=== PATIENT | female | born 1990 | race Caucasian/White ===

== ENCOUNTER 2018-03-25 22:37 | Emergency (ER) | payer BC, OTHER ==
[~2018-03-25] VITALS: Ht 160 cm; Wt 86.2 kg
[2018-03-25 23:08] LABS: BASOPHILS % (AUTO) 0 % (0-10); EOSINOPHILS # (AUTO) 0.1 10^3/uL (0.0-0.3); EOSINOPHILS % (AUTO) 1 % (0-10); HEMATOCRIT 37 % (35-52); LYMPHOCYTES # (AUTO) 1.1 X 10^3 (1.0-4.0); LYMPHOCYTES % (AUTO) 9 % (12-44); MEAN CORPUSCULAR HEMOGLOBIN 31 PG (25-34); MEAN CORPUSCULAR HGB CONC 35 G/DL (32-36); MEAN CORPUSCULAR VOLUME 88 FL (80-99); MEAN PLATELET VOLUME 11.3 FL (7.4-10.4); MONOCYTES # (AUTO) 0.5 X 10^3 (0.0-1.0); MONOCYTES % (AUTO) 4 % (0-12); NEUTROPHILS # (AUTO) 10.4 X 10^3 (1.8-7.8); NEUTROPHILS % (AUTO) 86 % (42-75); PLATELET COUNT 249 10^3/uL (130-400); RED BLOOD COUNT 4.26 10^6/uL (4.35-5.85); RED CELL DISTRIBUTION WIDTH 13.3 % (10.0-14.5); WHITE BLOOD COUNT 12.1 10^3/uL (4.3-11.0)
[2018-03-25] MEDS ORDERED: LACTATED RINGERS 1,000 ML IV ONE (23:19)
[2018-03-25] MEDS ORDERED: PROMETHAZINE INJ 25 MG/ML (PHENERGAN) AMP IVP STA (23:19)
[2018-03-25 23:27] LABS: ALANINE AMINOTRANSFERASE 15 U/L (0-55); ALBUMIN 3.8 GM/DL (3.2-4.5); ALKALINE PHOSPHATASE 64 U/L (40-136); AMYLASE 38 U/L (25-125); BILIRUBIN,TOTAL 0.5 MG/DL (0.1-1.0); BUN/CREATININE RATIO 11; CALCIUM 9.3 MG/DL (8.5-10.1); CARBON DIOXIDE 19 MMOL/L (21-32); CHLORIDE 106 MMOL/L (98-107); CREATININE SERUM 0.64 MG/DL (0.60-1.30); GFR ESTIMATED > 60; GLUCOSE 110 MG/DL (70-105); LIPASE 23 U/L (8-78); POTASSIUM 3.8 MMOL/L (3.6-5.0); SODIUM 138 MMOL/L (135-145); TOTAL PROTEIN 6.9 GM/DL (6.4-8.2)
[2018-03-26] MEDS ORDERED: NS IV 1000 ML 1,000 ML IV ONE (00:47)
[2018-03-26 00:52] LABS: LYMPHOCYTES % (MANUAL) 6 %; MONOCYTES % (MANUAL) 4 %; NEUTROPHILS % (MANUAL) 90 %
[2018-03-26] MEDS ORDERED: ACETAMINOPHEN 500 MG TAB (TYLENOL) PO ONE (01:15)
[2018-03-26 01:16] LABS: BILIRUBIN,URINE NEGATIVE (NEGATIVE); CLARITY,URINE CLEAR; COLOR,URINE YELLOW; GLUCOSE, URINE (UA) NEGATIVE (NEGATIVE); KETONES,URINE 3+ (NEGATIVE); LEUKOCYTE ESTERASE ,URINE NEGATIVE (NEGATIVE); NITRITE,URINE NEGATIVE (NEGATIVE); PH,URINE 6.5 (5-9); PROTEIN,URINE NEGATIVE (NEGATIVE); UROBILINOGEN,URINE NORMAL (NORMAL)
[2018-03-26 01:26] LABS: BACTERIA,URINE FEW /HPF
[2018-03-26] MEDS ORDERED: RX-PHENERGAN 25 MG SUPP PPK#3 PR STA (02:07)
[2018-03-26] MEDS ORDERED: PROM25SU43 RC (02:11)
--- NOTE | 2018-03-26 02:11 | ED GI ---
General Chief Complaint: Abdominal/GI Problems Stated Complaint: VOMITING,17 WKS Nursing Triage Note: Pt has been vomiting since 1430 and not feeling well all day. Pt is 17 weeks . She has been taking zofran (has taken max amount of zofran) today. Last dose was 1900. Pt has generalized abdominal pain from vomiting. Sepsis Screen: Possible Sepsis Risk Source of Information: Patient History of Present Illness Date Seen by Provider: Mar 25, 2018 Time Seen by Provider: 23:05 Initial Comments PT ARRIVES VIA POV FROM HOME C/O NAUSEA AND VOMITING SINCE 1430 TODAY-STATES SHE CANNOT KEEP ANYTHING DOWN, INCLUDING WATER. STATES SHE HAS ZOFRAN AT HOME AND HAS TAKEN THE MAXIMUM DAILY DOSE OF 32 MG TODAY, WITHOUT RELIEF. HAS TAKEN 8 MG TABLETS 4 TIMES TODAY. STATES SHE HAS VOMITED OVER 10 TIMES NO DIARRHEA. HAS HAD A NORMAL BM TODAY HAS HAD MILD LOWER ABDOMINAL PAIN THAT COMES AND GOES, IS NOT PRESENT NOW. HAS HAD CHILLS BUT HAS NOT CHECKED TEMPERATURE C/O BURNING ON URINATION AND VOIDING LESS THAN NORMAL, BUT URINATES EVERY TIME SHE THROWS UP STATES SHE FELT FINE THIS AM AND ATE EGG AND CHEESE BISCUIT WITH HAS BROWNS FOR BREAKFAST AND 1/2 PICKLE FOR LUNCH, NOTHING TO EAT SINCE THEN. NO SICK CONTACTS OR SUSPICIOUS FOODS. PT STATES SHE IS 17 WEEKS PT IS AB 0. NO COMPLICATIONS WITH THIS . NO VAGINAL BLEEDING OR DISCHARGE. HAD ROUTINE VISIT WITH DR. RICHEY 03/14/18 HAD NORMAL ULTRASOUND 03/07/[address] S[employer]YMANSKI[employer]S [employer] CLIP ON SUNGLASSES KHALIDA AROUND 1800 FOR THIS PROBLEM, AND WAS ADVISED TO GO TO ER. Allergies and Home Medications Allergies Coded Allergies: Sulfa (Sulfonamide Antibiotics) (Verified Allergy, Unknown, 03/25/18) Home Medications Promethazine HCl 25 Mg Supp.rect, 25 MG RC Q4H Prescribed by: LUIS GAYLE on 03/26/18 0211 Patient Home Medication List Home Medication List Reviewed: Yes Review of Systems Review of Systems Constitutional: see HPI, chills, malaise, weakness EENTM: No Symptoms Reported Respiratory: No Symptoms Reported Cardiovascular: No Symptoms Reported Gastrointestinal: See HPI, Abdominal Pain; Denies Constipated, Denies Diarrhea ; Nausea, Poor Appetite, Poor Fluid Intake, Vomiting Genitourinary: See HPI, Burning, Incontinence Musculoskeletal: no symptoms reported Skin: no symptoms reported Psychiatric/Neurological: No Symptoms Reported Endocrine: No Symptoms Reported Hematologic/Lymphatic: No Symptoms Reported Past Ojtupms-Jrwiwg-Saferq Hx Patient Social History Alcohol Use: Past History (WHEN YOUNGER.) Recreational Drug Use: No Smoking Status: Former Smoker Type Used: Cigarettes 2nd Hand Smoke Exposure: No Recent Foreign Travel: No Contact w/Someone Who Travel: No Recent Infectious Disease Expo: No Recent Hopitalizations: No Physical Abuse: No Sexual Abuse: No Mistreated: No Fear: No Seasonal Allergies Seasonal Allergies: No Past Medical History Surgeries: Yes (WISDOM TEETH) Respiratory: No Cardiac: Yes Hypertension Neurological: No : Yes Hx : 1 Hx Para: 0 Hx Total # of Abortions (Sp): 0 Reproductive Disorders: No Genitourinary: No Gastrointestinal: No Musculoskeletal: No Endocrine: No HEENT: No Cancer: No Psychosocial: No Integumentary: No Blood Disorders: No Physical Exam Vital Signs Vital Signs - First Documented 03/25/18 22:42 Temp 100.5 Pulse 120 Resp 14 B/P (MAP) 143/87 (105) Pulse Ox 99 O2 Delivery Room Air Capillary Refill : Less Than 3 Seconds Height/Weight/BMI Height: 5'3.00" Weight: 190lbs. oz. 86.468288mc; BMI Method:Stated General Appearance: WD/WN, no apparent distress, other (FLAT AFFECT, DOES NOT MAKE EYE CONTACT. SOMEWHAT LETHARGIC. ) HEENT: PERRL/EOMI, normal ENT inspection Neck: normal inspection Respiratory: normal breath sounds, no respiratory distress, no accessory muscle use Cardiovascular: regular rate, rhythm, no murmur Gastrointestinal: normal bowel sounds, soft, no organomegaly; No distended, No guarding, No rebound; other (FUNDUS 2 FB'S BELOW UMBILICUS. FHR 155) Extremities: normal inspection, no pedal edema, normal capillary refill Back: normal inspection, no CVA tenderness Neurologic/Psychiatric: medical pathologist II-XII nml as tested, no motor/sensory deficits, alert, oriented x 3 Skin: normal color, warm/dry; No rash Focused Exam Lactate Level 03/25/18 22:53: Lactic Acid Level 1.01 Lactic Acid Level Laboratory Tests Test 03/25/18 22:53 Lactic Acid Level 1.01 MMOL/L (0.50-2.00) Progress/Results/Core Measures Results/Orders Lab Results Laboratory Tests Test 03/25/18 22:53 03/26/18 01:05 Range/Units White Blood Count 12.1 H 4.3-11.0 10^3/uL Red Blood Count 4.26 L 4.35-5.85 10^6/uL Hemoglobin 13.0 11.5-16.0 G/DL Hematocrit 37 35-52 % Mean Corpuscular Volume 88 80-99 FL Mean Corpuscular Hemoglobin 31 25-34 PG Mean Corpuscular Hemoglobin Concent 35 32-36 G/DL Red Cell Distribution Width 13.3 10.0-14.5 % Platelet Count 249 130-400 10^3/uL Mean Platelet Volume 11.3 H 7.4-10.4 FL Neutrophils (%) (Auto) 86 H 42-75 % Lymphocytes (%) (Auto) 9 L 12-44 % Monocytes (%) (Auto) 4 0-12 % Eosinophils (%) (Auto) 1 0-10 % Basophils (%) (Auto) 0 0-10 % Neutrophils # (Auto) 10.4 H 1.8-7.8 X 10^3 Lymphocytes # (Auto) 1.1 1.0-4.0 X 10^3 Monocytes # (Auto) 0.5 0.0-1.0 X 10^3 Eosinophils # (Auto) 0.1 0.0-0.3 10^3/uL Basophils # (Auto) 0.0 0.0-0.1 10^3/uL Neutrophils % (Manual) 90 % Lymphocytes % (Manual) 6 % Monocytes % (Manual) 4 % Sodium Level 138 135-145 MMOL/L Potassium Level 3.8 3.6-5.0 MMOL/L Chloride Level 106 98-107 MMOL/L Carbon Dioxide Level 19 L 21-32 MMOL/L Anion Gap 13 5-14 MMOL/L Blood Urea Nitrogen 7 7-18 MG/DL Creatinine 0.64 0.60-1.30 MG/DL Estimat Glomerular Filtration Rate > 60 BUN/Creatinine Ratio 11 Glucose Level 110 H 70-105 MG/DL Lactic Acid Level 1.01 0.50-2.00 MMOL/L Calcium Level 9.3 8.5-10.1 MG/DL Corrected Calcium 9.5 8.5-10.1 MG/DL Magnesium Level 1.6 L 1.8-2.4 MG/DL Total Bilirubin 0.5 0.1-1.0 MG/DL Aspartate Amino Transf (AST/SGOT) 15 5-34 U/L Alanine Aminotransferase (ALT/SGPT) 15 0-55 U/L Alkaline Phosphatase 64 40-136 U/L Total Protein 6.9 6.4-8.2 GM/DL Albumin 3.8 3.2-4.5 GM/DL Amylase Level 38 25-125 U/L Lipase 23 8-78 U/L Urine Color YELLOW Urine Clarity CLEAR Urine pH 6.5 5-9 Urine Specific Loving 1.010 L 1.016-1.022 Urine Protein NEGATIVE NEGATIVE Urine Glucose (UA) NEGATIVE NEGATIVE Urine Ketones 3+ H NEGATIVE Urine Nitrite NEGATIVE NEGATIVE Urine Bilirubin NEGATIVE NEGATIVE Urine Urobilinogen NORMAL NORMAL MG/DL Urine Leukocyte Esterase NEGATIVE NEGATIVE Urine RBC (Auto) NEGATIVE NEGATIVE Urine RBC NONE /HPF Urine WBC NONE /HPF Urine Squamous Epithelial Cells 2-5 /HPF Urine Renal Epithelial Cells NONE /HPF Urine Crystals NONE /LPF Urine Bacteria FEW H /HPF Urine Casts NONE /LPF Urine Mucus NEGATIVE /LPF Urine Culture Indicated NO Micro Results Microbiology 03/25/18 Influenza Types A,B Antigen (LUDIN) - Final, Complete My Orders Orders - LUIS GAYLE DO Saline Lock/Iv-Start (03/25/18 23:01) Monitor-Rhythm Ecg Trace Only (03/25/18 23:01) Amylase (03/25/18 23:01) Cbc With Automated Diff (03/25/18 23:01) Comprehensive Metabolic Panel (03/25/18 23:01) Lipase (03/25/18 23:01) Ua Culture If Indicated (03/25/18 23:01) Saline Lock/Iv-Start (03/25/18 23:01) Manual Differential (03/25/18 22:53) Lactic Acid Analyzer (03/25/18 23:19) Magnesium (03/25/18 23:19) Blood Culture (03/25/18 23:19) Influenza A And B Antigens (03/25/18 23:19) Saline Lock/Iv-Start (03/25/18 23:19) Heart Tones (03/25/18 23:19) Saline Lock/Iv-Start (03/25/18 23:19) Lactated Ringers (Lr 1000 Ml Iv Solution (03/25/18 23:19) Promethazine Injection (Phenergan Injec (03/25/18 23:19) Saline Lock/Iv-Start (03/26/18 00:47) Ns Iv 1000 Ml (Sodium Chloride 0.9%) (03/26/18 00:47) Acetaminophen Tablet (Tylenol Tablet) (03/26/18 01:15) Rx-Promethazine Hcl (Rx-Phenergan Supp) (03/26/18 02:07) Medications Given in ED Current Medications Medications Dose Ordered Sig/Bharti Route Start Time Stop Time Status Last Admin Dose Admin Acetaminophen 1,000 mg ONCE ONCE PO 03/26/18 01:15 03/26/18 01:16 DC 03/26/18 01:17 1,000 MG Lactated Ringer's 1,000 ml @ 0 mls/hr Q0M ONCE IV 03/25/18 23:19 03/25/18 23:22 DC 03/25/18 23:30 1,000 MLS/HR Sodium Chloride 1,000 ml @ 0 mls/hr Q0M ONCE IV 03/26/18 00:47 03/26/18 00:48 DC 03/26/18 01:00 1,000 MLS/HR Vital Signs/I&O 03/25/18 03/26/18 03/26/18 22:42 02:19 02:19 Temp 100.5 99.9 99.9 Pulse 120 95 95 Resp 14 12 B/P (MAP) 143/87 (105) 119/81 119/81 (94) Pulse Ox 99 97 97 O2 Delivery Room Air Room Air Room Air Blood Pressure Mean: 105 Progress Progress Note : Progress Note FHR 155 NO VOMITING DURING ER STAY. AND NO COMPLAINTS OF ABDOMINAL PAIN DURING ER STAY. NAUSEA RESOLVED WITH PHENERGAN PT TOLERATING WATER AND ICE CHIPS PRIOR TO DISMISSAL. Departure Impression Primary Impression: Gastroenteritis Additional Impressions: 17 weeks gestation of Mild dehydration Disposition: 01 HOME, SELF-CARE Condition: Improved Departure-Patient Inst. Referrals: MARIN RICHEY MD (PCP/Family) Primary Care Physician Patient Instructions: [id number], Nausea and Vomiting of (DC), Nausea and Vomiting, Adult (DC) Add. Discharge Instructions: CLEAR LIQUIDS--WATER, BROTH, JELLO, GATORADE--SIPS AT A TIME TOMORROW IF YOU ARE BETTER, ADD BRATS DIET TO CLEAR LIQUIDS--BANANAS, RICE, APPLESAUCE, TOAST, SALTINES TAKE YOUR HOME ZOFRAN NEEDED FOR NAUSEA FOLLOW UP WITH YOUR DR IN 1-2 DAYS IF NO BETTER, RETURN TO ER IF WORSE All discharge instructions reviewed with patient and/or family. Voiced understanding. Scripts Promethazine HCl (Phenergan) 25 Mg Supp.rect 25 MG RC Q4H for Nausea/Vomiting, #10 SUPP.RECT Prov: LUIS GAYLE DO 03/26/18 LUIS GAYLE DO Mar 26, 2018 02:11
[2018-03-26 02:19] VITALS: BP 119/81
== END 2018-03-26 02:19 | disposition home or self-care (01) ==
LOC: ER 22:40
DX: O99.612 Diseases of the digestive system complicating pregnancy, second trimester (principal); K52.9 Noninfective gastroenteritis and colitis, unspecified; O99.282 Endocrine, nutritional and metabolic diseases complicating pregnancy, second trimester; E86.0 Dehydration; O16.2 Unspecified maternal hypertension, second trimester; Z87.891 Personal history of nicotine dependence; Z88.2 Allergy status to sulfonamides; Z3A.17 17 weeks gestation of pregnancy
CPT/HCPCS: 36415; 80053; 81000; 82150; 83605; 83690; 83735; 85007; 85027; 87040; 87804

== ENCOUNTER 2018-07-07 13:35 | Outpatient (CLI) | payer BC ==
[2018-07-07] VITALS (10 sets, daily range): BP systolic 132–174; BP diastolic 87–99
[~2018-07-07] VITALS: Ht 160 cm; Wt 101.6 kg
--- NOTE | 2018-07-07 13:25 | NUR ---
ANDREINA BUCIO presented to unit via from ED, accompanied by self, with c/o FACIAL SWELLING, HIGH BP. ANDREINA BUCIO weighed, gowned, voided, and to bed. EFHM and TOCO applied, VS taken. ANDREINA BUCIO oriented to bed controls, call light, TV, heat, and A/C controls.
[~2018-07-07 13:35] MED LIST: PROM25SU43 RC
--- NOTE | 2018-07-07 13:43 | NUR ---
dr elam notified of patient status and SBAR given. new orders received.
[2018-07-07 14:02] LABS: BILIRUBIN,URINE NEGATIVE (NEGATIVE); CLARITY,URINE VERY CLOUDY; COLOR,URINE YELLOW; GLUCOSE, URINE (UA) NEGATIVE (NEGATIVE); KETONES,URINE NEGATIVE (NEGATIVE); LEUKOCYTE ESTERASE ,URINE 3+ (NEGATIVE); NITRITE,URINE NEGATIVE (NEGATIVE); PH,URINE 6.5 (5-9); PROTEIN,URINE NEGATIVE (NEGATIVE); UROBILINOGEN,URINE NORMAL (NORMAL)
[2018-07-07 14:12] LABS: BACTERIA,URINE FEW /HPF; SQUAMOUS EPITHELIAL CELL,UR >50 /HPF
--- NOTE | 2018-07-07 14:12 | NUR ---
assisted patient to left tilt with pillow, denies need at this time. fresh ice water placed at bedside. continuing to monitor.
[2018-07-07 14:30] LABS: BASOPHILS % (AUTO) 0 % (0-10); EOSINOPHILS # (AUTO) 0.1 10^3/uL (0.0-0.3); EOSINOPHILS % (AUTO) 1 % (0-10); HEMATOCRIT 36 % (35-52); HEMOGLOBIN 12.2 G/DL (11.5-16.0); LYMPHOCYTES # (AUTO) 1.8 X 10^3 (1.0-4.0); LYMPHOCYTES % (AUTO) 17 % (12-44); MEAN CORPUSCULAR HEMOGLOBIN 30 PG (25-34); MEAN CORPUSCULAR HGB CONC 34 G/DL (32-36); MEAN CORPUSCULAR VOLUME 89 FL (80-99); MEAN PLATELET VOLUME 11.9 FL (7.4-10.4); MONOCYTES # (AUTO) 0.8 X 10^3 (0.0-1.0); MONOCYTES % (AUTO) 8 % (0-12); NEUTROPHILS # (AUTO) 7.7 X 10^3 (1.8-7.8); NEUTROPHILS % (AUTO) 74 % (42-75); PLATELET COUNT 198 10^3/uL (130-400); RED CELL DISTRIBUTION WIDTH 14.1 % (10.0-14.5); WHITE BLOOD COUNT 10.4 10^3/uL (4.3-11.0)
[2018-07-07 14:55] LABS: ALANINE AMINOTRANSFERASE 13 U/L (0-55); ALBUMIN 3.4 GM/DL (3.2-4.5); ALKALINE PHOSPHATASE 107 U/L (40-136); BILIRUBIN,TOTAL 0.2 MG/DL (0.1-1.0); BUN/CREATININE RATIO 8; CALCIUM 9.4 MG/DL (8.5-10.1); CARBON DIOXIDE 20 MMOL/L (21-32); CHLORIDE 109 MMOL/L (98-107); GFR ESTIMATED > 60; GLUCOSE 99 MG/DL (70-105); POTASSIUM 3.7 MMOL/L (3.6-5.0); SODIUM 141 MMOL/L (135-145); TOTAL PROTEIN 6.2 GM/DL (6.4-8.2); URIC ACID 5.7 MG/DL (2.6-7.2)
[2018-07-07] MEDS ORDERED: LORA10CA PO (15:22)
[2018-07-07] MEDS ORDERED: PREN1TAB79 PO (15:22)
[2018-07-07] MEDS ORDERED: ASPI-999 PO (15:23)
--- NOTE | 2018-07-07 15:23 | NUR ---
EFM off. up to get dressed.
[2018-07-07] MEDS ORDERED: FLU QUADRIvalent (5+ YOA) 2018-2019 (AFLURIA) 0.5 ML IM ONE (15:30)
[2018-07-07] MEDS ORDERED: OSLT75C PO (15:32)
--- NOTE | 2018-07-07 15:55 | NUR ---
DISCHARGE INSTRUCTIONS REVIEWED WITH COPY TO PT. STATES UNDERSTANDING OF ALL INSTRUCTIONS AND NEED TO F/U ORDERED AND NEEDED.
--- NOTE | 2018-07-07 16:00 | NUR ---
OUT OF WS VIA AMBULATION TO HOME SELF CARE WITH PRECAUTIONS. S/O AT SIDE.
--- NOTE | 2018-07-10 09:35 | Physician Query-Final Dx ---
MOI BILLINGS 07/10/18 0934: Clinic Account Progress/Dx Physician Query: Please give a diagnosis and include the weeks of gestation thank you Date of Service Jul 07, 2018 at 13:35 MARIN RICHEY MD 07/10/18 1818: Clinic Account Progress/Dx DIAGNOSIS: Diagnosis 33 weeks gestation with PIH MOI BILLINGS Jul 10, 2018 09:34 MARIN IRCHEY MD Jul 10, 2018 18:18
== END 2018-07-07 15:55 | disposition home or self-care (01) ==
LOC: WSo 13:35 → LDRP 13:36 → WSo 15:55
PROVIDERS: ATTEND Obstetrics & Gynecology
DX: O13.3 Gestational [pregnancy-induced] hypertension without significant proteinuria, third trimester (principal); Z3A.33 33 weeks gestation of pregnancy
CPT/HCPCS: 36415; 80053; 81000; 82570; 83615; 84156; 84550; 85025; 87088; 99213

== ENCOUNTER → 2018-07-10 | Outpatient (CLI) | payer BC ==
[~2018-07-10] MED LIST changes: +ASPI-999 PO; +LABE200T7 PO; +LORA10CA PO; +NITR-65 PO; +OSLT75C PO; +PREN1TAB79 PO
== END ==
LOC: LABNPT 10:10
PROVIDERS: ATTEND Obstetrics & Gynecology
DX: O28.8 Other abnormal findings on antenatal screening of mother (principal)
CPT/HCPCS: 82570; 84156

== ENCOUNTER 2018-07-14 14:13 | Observation (INO) | payer BC, OTHER ==
[2018-07-14] VITALS (14 sets, daily range): BP systolic 138–189; BP diastolic 70–111
[~2018-07-14] VITALS: Ht 160 cm; Wt 105.7 kg
--- NOTE | 2018-07-14 14:10 | NUR ---
ANDREINA BUCIO presented to unit via AMBULATION from HOME, with c/o ELEVATED BLOOD PRESSURE. ANDREINA BUCIO weighed, gowned, voided, and to bed. EFHM and TOCO applied, VS taken. ANDREINA BUCIO oriented to bed controls, call light, TV, heat, and A/C controls.
[~2018-07-14 14:13] MED LIST changes: -LABE200T7 PO; -NITR-65 PO
--- NOTE | 2018-07-14 14:15 | NUR ---
PT REPORTS TAKING HER BLOOD PRESSURE AT HOME AND GETTING "HIGH READINGS", PT SHOWS RN BOOK WITH SEVERAL BLOOD PRESSURE READING RECORDED OVER THE LAST TWO DAYS. PT HAS TAKEN HER BLOOD PRESSURE MULTIPLE TIMES SOMETIMES WITHIN A FEW MINUTES OF EACH OTHER. RN ASK IF DR ORDERED PT TO TAKE BPS AT HOME AND PT REPORTED NO SHE WAS JUST MONITORING THEM HERSELF. PT ALSO REPORTS DIZZINESS SINCE LAST WEEK. PT REPORTS BEING HERE LAST SATURDAY FOR THE SAME THING AND LABS BEING DRAWN, SHE WAS LATER SENT HOME TO FOLLOW UP WITH DR RICHEY IN THE CLINIC ON SATURDAY. PT VERY TEARFUL AND ANXIOUS TODAY, REPORTS BEING VERY FRUSTRATED AND NOT KNOWING WHAT TO DO. RN OFFERED ENCOURAGEMENT AND REASSURANCE, PLAN OF CARE EXPLAINED TO PT, QUESTIONS ANSWERED, PT VERBALIZES UNDERSTANDING OF PLAN OF CARE, WILL MONITOR.
--- NOTE | 2018-07-14 14:30 | NUR ---
INITIAL ASSESSMENT COMPLETED, SEE INTERVENTIONS FOR DETAILED ASSESSMENTS, PT ON CELL PHONE CONTINUOUSLY WHILE RN IN ROOM, TEXTING.
--- NOTE | 2018-07-14 14:35 | NUR ---
DR HILL CALLED, NEW ORDERS RECEIVED, PLAN OF CARE UPDATED WITH PT, NO QUESTIONS NOTED.
[2018-07-14 14:52] LABS: BILIRUBIN,URINE NEGATIVE (NEGATIVE); CLARITY,URINE SLIGHTLY CLOUDY; COLOR,URINE YELLOW; GLUCOSE, URINE (UA) NEGATIVE (NEGATIVE); KETONES,URINE NEGATIVE (NEGATIVE); LEUKOCYTE ESTERASE ,URINE 1+ (NEGATIVE); NITRITE,URINE NEGATIVE (NEGATIVE); PH,URINE 6.5 (5-9); PROTEIN,URINE 1+ (NEGATIVE); UROBILINOGEN,URINE NORMAL (NORMAL)
[2018-07-14 14:58] LABS: BACTERIA,URINE TRACE /HPF; WBC,URINE RARE /HPF
[2018-07-14 14:59] LABS: AMORPHOUS SEDIMENT,UR RARE AMOR URATES /LPF
[2018-07-14] MEDS: LACTATED RINGERS 1,000 ML IV SCH ×2 (15:02→21:43)
--- NOTE | 2018-07-14 15:02 | NUR ---
IV STARTED X 1 STICK, PT TOLERATED WELL, PT TO FLAT LT LATERAL POSITION FOR BLOOD PRESSURE.
[2018-07-14] MEDS: LABETALOL 200 MG (NORMODYNE) TAB PO SCH ×2 (15:41→21:42)
--- NOTE | 2018-07-14 16:03 | NUR ---
Dr Villegas here to see pt, updated on blood pressures, UA.
[2018-07-14 16:08] LABS: BASOPHILS % (AUTO) 0 % (0-10); EOSINOPHILS # (AUTO) 0.1 10^3/uL (0.0-0.3); EOSINOPHILS % (AUTO) 1 % (0-10); HEMATOCRIT 35 % (35-52); HEMOGLOBIN 11.9 G/DL (11.5-16.0); LYMPHOCYTES # (AUTO) 1.7 X 10^3 (1.0-4.0); LYMPHOCYTES % (AUTO) 16 % (12-44); MEAN CORPUSCULAR HEMOGLOBIN 30 PG (25-34); MEAN CORPUSCULAR HGB CONC 34 G/DL (32-36); MEAN CORPUSCULAR VOLUME 90 FL (80-99); MEAN PLATELET VOLUME 13.2 FL (7.4-10.4); MONOCYTES # (AUTO) 0.9 X 10^3 (0.0-1.0); MONOCYTES % (AUTO) 8 % (0-12); NEUTROPHILS # (AUTO) 8.1 X 10^3 (1.8-7.8); NEUTROPHILS % (AUTO) 75 % (42-75); PLATELET COUNT 158 10^3/uL (130-400); RED CELL DISTRIBUTION WIDTH 13.8 % (10.0-14.5); WHITE BLOOD COUNT 10.8 10^3/uL (4.3-11.0)
[2018-07-14] MEDS ORDERED: BETAMETHASONE ACE/NA PHOS 6 MG/ML (CELESTONE SOLUSPAN) ONE (16:22)
--- NOTE | 2018-07-14 16:22 | History & Physical-OB/GYN ---
History of Present Illness History of Present Illness Reason for visit/HPI with dizziness. Ms. Castillo has been at home checking her blood pressures quite frequently, which have all been high Date of Admission 07/14/2018 Date Seen by a Provider: Jul 14, 2018 Time Seen by a Provider: 16:10 I consulted on this patient on 07/14/18 16:[address] Juan Sanford Admitting Physician Juan Sanford MD Consult Allergies and Home Medications Allergies Coded Allergies: Sulfa (Sulfonamide Antibiotics) (Verified Allergy, Unknown, 03/25/18) Home Medications Aspirin 81 Mg Tab.chew, 81 MG PO DAILY, (Reported) Loratadine 10 Mg Capsule, 10 MG PO DAILY, (Reported) Oseltamivir Phosphate 75 Mg Cap, 75 MG PO BID Prescribed by: DAYANA BELTRAN on 07/07/18 1532 Vit W-Ca,Fe,FA(<1 mg) 1 Each Tablet, 1 EACH PO DAILY, (Reported) Patient Home Medication List Home Medication List Reviewed: Yes Past Lctgkky-Sdfvsv-Bukfpn Hx Patient Social History Marrital Status: Number of Children: 0 Number of living children: 0 Employed/Student: employed Alcohol Use: Denies Use Smoking Status: Never a Smoker Type Used: Cigarettes 2nd Hand Smoke Exposure: No Physical Abuse Screen: No Sexual Abuse: No Recent Foreign Travel: No Contact w/other who traveled: No Recent Hopitalizations: No Recent Infectious Disease Expo: No Seasonal Allergies Seasonal Allergies: No Surgeries Yes (WISDOM TEETH) Respiratory No Cardiovascular Yes Hypertension Neurological No Reproductive System Hx Reproductive Disorders: No Genitourinary No Gastrointestinal No Musculoskeletal No Endocrine History of Endocrine Disorders: No HEENT History of HEENT Disorders: No Cancer No Psychosocial History of Psychiatric Problem: No Integumentary History of Skin or Integumenta: No Blood Transfusions History of Blood Disorders: No Family Medical History Significant Family History: Heart Disease, Diabetes, Hypertension, Psychiatric Problems Review of Systems Constitutional: no symptoms reported Physical Exam Physical Exam Vital Signs Capillary Refill : Labs Laboratory Tests 07/14/18 14:25: Urine Color YELLOW, Urine Clarity SLIGHTLY CLOUDY, Urine pH 6.5, Urine Specific Merrill 1.020, Urine Protein 1+H, Urine Glucose (UA) NEGATIVE, Urine Ketones NEGATIVE, Urine Nitrite NEGATIVE, Urine Bilirubin NEGATIVE, Urine Urobilinogen NORMAL, Urine Leukocyte Esterase 1+H, Urine RBC (Auto) NEGATIVE, Urine RBC NONE , Urine WBC RARE, Urine Squamous Epithelial Cells 2-5, Urine Crystals NONE, Urine Amorphous Sediment RARE PETER URATESH, Urine Bacteria TRACE, Urine Casts NONE, Urine Mucus NEGATIVE, Urine Culture Indicated CULTURE PENDING 07/14/18 15:47: White Blood Count 10.8, Red Blood Count 3.94L, Hemoglobin 11.9, Hematocrit 35, Mean Corpuscular Volume 90, Mean Corpuscular Hemoglobin 30, Mean Corpuscular Hemoglobin Concent 34, Red Cell Distribution Width 13.8, Platelet Count 158, Mean Platelet Volume 13.2H, Neutrophils (%) (Auto) 75, Lymphocytes (%) (Auto) 16 , Monocytes (%) (Auto) 8, Eosinophils (%) (Auto) 1, Basophils (%) (Auto) 0, Neutrophils # (Auto) 8.1H, Lymphocytes # (Auto) 1.7, Monocytes # (Auto) 0.9, Eosinophils # (Auto) 0.1, Basophils # (Auto) 0.0 Assessment/Plan Assessment and Plan Assessment: Intrauterine at 33 3/7 weeks 2. Dizziness 3. Gestational Hypertension Plan: Toxemia Panel ordered. Absolute bedrest. Labetalol 200 mg one orally eveyr 6 hours. Betamethasone 12 mg intramuscularly now, then repeat in 24 hours. Intermittent monitoring with observation. Admission Diagnosis Admission Status: Observation Reason for Inpatient Admission: Elevated blood pressures during . I will start medication, place on bedrest and observe her overnight with re-evaluation tomorrow and possible discharge STEPHANIE HILL DO Jul 14, 2018 16:22
[2018-07-14 16:25] LABS: ALANINE AMINOTRANSFERASE 15 U/L (0-55); ALBUMIN 3.1 GM/DL (3.2-4.5); ALKALINE PHOSPHATASE 115 U/L (40-136); BILIRUBIN,TOTAL 0.1 MG/DL (0.1-1.0); BUN/CREATININE RATIO 11; CALCIUM 9.3 MG/DL (8.5-10.1); CARBON DIOXIDE 20 MMOL/L (21-32); CHLORIDE 107 MMOL/L (98-107); CREATININE SERUM 0.64 MG/DL (0.60-1.30); GFR ESTIMATED > 60; GLUCOSE 101 MG/DL (70-105); POTASSIUM 3.6 MMOL/L (3.6-5.0); SODIUM 137 MMOL/L (135-145); TOTAL PROTEIN 5.9 GM/DL (6.4-8.2); URIC ACID 6.3 MG/DL (2.6-7.2)
--- NOTE | 2018-07-14 16:25 | NUR ---
EFM AND TOCO DC'D PER DR ORDER, BETAMETHASONE GIVEN IM PER TARA FOSS.
[2018-07-14] MEDS: BETAMETHASONE ACE/NA PHOS 6 MG/ML (CELESTONE SOLUSPAN) IM SCH (16:30)
--- NOTE | 2018-07-14 17:15 | NUR ---
PT REPORTS THAT SHE HAS BEEN TAKING MACROBID FOR A UTI BUT CANT REMEMBER WHEN SHE STARTED TAKING IT AND ALSO REPORTS SHE FORGOT TO TAKE YESTERDAY'S EVENING DOSE, DR HILL CALLED, NEW ORDER TO CONTINUE MACROBID 100MG PO BID, PT UPDATED ABOUT PLAN OF CARE, PT VERBALIZES UNDERSTANDING.
[2018-07-14] MEDS ORDERED: NITR-65 PO (17:20)
--- NOTE | 2018-07-14 18:00 | NUR ---
RN TO PTS ROOM, PT SITTING STRAIGHT UP IN BED EATING DINNER, S/O AT SIDE, PT EATING SINHALA FOOD AND DRINKING SOFT DRINK. EDUCATED PT ABOUT APPROPRIATE FOOD CHOOSES IN REGARDS TO HYPERTENSION, PT VERBALIZES UNDERSTANDING, NO QUESTIONS OR CONCERNS NOTED. RN TOLD PT THAT AFTER EATING SHE WOULD NEED TO REST IN LEFT LATERAL POSITION AGAIN TO HELP WITH BP. PT REPORTS DIZZINESS IS BETTER SINCE TAKING LABETALOL AND BLOOD PRESSURE IS CONSIDERABLY LOWER THEN ON ARRIVAL. PLAN OF CARE UPDATED, WILL MONITOR CLOSELY.
--- NOTE | 2018-07-14 19:00 | NUR ---
REPORT TO ROSIBEL FOSS.
[2018-07-14] MEDS: NITROFURANTOIN 100 MG (MACROBID) CAPSULE PO SCH (20:15)
--- NOTE | 2018-07-14 20:52 | NUR ---
Dr. Villegas notified of pt c/o MEJÍA. New orders received.
[2018-07-14] MEDS ORDERED: [UNRECOGNIZED DRUG - OTHER] PO SCH (21:00)
[2018-07-14] MEDS ORDERED: ACET/BUTAL/CAFF (FIORICET) TAB PO PRN (21:00)
[2018-07-15 02:18] VITALS: BP 129/73
[2018-07-15 05:55] LABS: BASOPHILS % (AUTO) 0 % (0-10); EOSINOPHILS % (AUTO) 0 % (0-10); HEMATOCRIT 36 % (35-52); HEMOGLOBIN 12.2 G/DL (11.5-16.0); LYMPHOCYTES % (AUTO) 7 % (12-44); MEAN CORPUSCULAR HEMOGLOBIN 30 PG (25-34); MEAN CORPUSCULAR HGB CONC 34 G/DL (32-36); MEAN CORPUSCULAR VOLUME 90 FL (80-99); MEAN PLATELET VOLUME 13.4 FL (7.4-10.4); MONOCYTES # (AUTO) 0.5 X 10^3 (0.0-1.0); MONOCYTES % (AUTO) 3 % (0-12); NEUTROPHILS # (AUTO) 14.1 X 10^3 (1.8-7.8); NEUTROPHILS % (AUTO) 90 % (42-75); PLATELET COUNT 174 10^3/uL (130-400); WHITE BLOOD COUNT 15.7 10^3/uL (4.3-11.0)
[2018-07-15 06:15] VITALS: BP 143/80
[2018-07-15] MEDS: LACTATED RINGERS 1,000 ML IV SCH (06:18)
[2018-07-15 06:59] LABS: LYMPHOCYTES % (MANUAL) 9 %; MONOCYTES % (MANUAL) 2 %; NEUTROPHILS % (MANUAL) 89 %
[2018-07-15 07:02] LABS: URINE CREATININE FOR RATIO 54 MG/DL (30-125); URINE PROTEIN FOR RATIO ONLY < 6 MG/DL (6-12)
--- NOTE | 2018-07-15 07:36 | NUR ---
Report given to Guevara FOSS
--- NOTE | 2018-07-15 07:38 | Progress Note-Standard ---
Standard Progress Note Progress Notes/Assess & Plan Date Seen by a Provider: Jul 15, 2018 Time Seen by a Provider: 07:37 Progress/Assessment & Plan This patient without complaint. She is ambulating, voiding, tolerating intake well has been pain control. She denies chest pain, denies shortness of breath, denies nausea vomiting denies contractions, denies headache Vital Signs Date Time Temp Pulse Resp B/P (MAP) Pulse Ox O2 Delivery O2 Flow Rate FiO2 07/15/18 06:15 71 20 143/80 (101) 07/15/18 02:18 80 18 129/73 (91) 07/14/18 22:45 144/80 (101) 07/14/18 22:30 72 20 147/83 (104) 07/14/18 21:30 72 18 138/70 (92) 07/14/18 20:30 65 18 159/74 (102) 07/14/18 19:30 75 18 139/73 (95) 07/14/18 18:28 83 22 179/85 (116) Room Air 07/14/18 17:28 79 22 148/85 (106) Room Air 07/14/18 16:15 81 22 146/81 (102) Room Air 07/14/18 15:40 83 22 163/95 (117) Room Air 07/14/18 15:25 83 22 167/93 (117) Room Air 07/14/18 15:10 82 22 179/99 (125) Room Air 07/14/18 14:55 96 22 171/94 (119) Room Air 07/14/18 14:40 90 22 174/103 (126) Room Air 07/14/18 14:15 98.4 88 22 189/111 (137) Room Air Blood pressures are in an appropriate range on the labetalol vital signs are stable The abdomen is gravid soft nontender nondistended. Extremities show clubbing cyanosis. There is no Homans sign. monitor shows normal heart rate pattern with no contractions. Assessment and plan this patient is 33 weeks gestation with pre-existing hypertension now with -induced exacerbation of that high blood pressure. She is stable now on labetalol be discharged home with follow-up in clinic on her labetalol Final Diagnosis -induced hypertension MARIN RICHEY MD Jul 15, 2018 07:38
[2018-07-15] MEDS ORDERED: LABE200T7 PO (07:40)
--- NOTE | 2018-07-15 07:42 | Discharge Instructions ---
Discharge Instructions Discharge Medications New, Converted or Re-Newed RX: Call to Patients Pharmacy Patient Instructions Patient Instructions: As directed Return to The Hospital For: As directed Activity & Diet Discharge Diet: No Restrictions Activity as Tolerated: Yes Orders-Post D/C & Referrals Follow Up Appt: Return to clinic for follow-up OB visit as scheduled Return to clinic promptly for any signs symptoms and indications of preeclampsia Activity: as tolerated. Please call in RX to patient pharmacy. Diet: As tolerated shower or tub bathe as desired. MARIN RICHEY MD Jul 15, 2018 07:42
--- NOTE | 2018-07-15 07:44 | Progress Note-Standard ---
Standard Progress Note Progress Notes/Assess & Plan Date Seen by a Provider: Jul 15, 2018 Time Seen by a Provider: 07:42 Progress/Assessment & Plan This patient without complaint. She is ambulating, voiding, tolerating intake well has been pain control. She denies chest pain, denies shortness of breath, denies nausea vomiting denies contractions, denies headache Vital Signs Date Time Temp Pulse Resp B/P (MAP) Pulse Ox O2 Delivery O2 Flow Rate FiO2 07/15/18 06:15 71 20 143/80 (101) 07/15/18 02:18 80 18 129/73 (91) 07/14/18 22:45 144/80 (101) 07/14/18 22:30 72 20 147/83 (104) 07/14/18 21:30 72 18 138/70 (92) 07/14/18 20:30 65 18 159/74 (102) 07/14/18 19:30 75 18 139/73 (95) 07/14/18 18:28 83 22 179/85 (116) Room Air 07/14/18 17:28 79 22 148/85 (106) Room Air 07/14/18 16:15 81 22 146/81 (102) Room Air 07/14/18 15:40 83 22 163/95 (117) Room Air 07/14/18 15:25 83 22 167/93 (117) Room Air 07/14/18 15:10 82 22 179/99 (125) Room Air 07/14/18 14:55 96 22 171/94 (119) Room Air 07/14/18 14:40 90 22 174/103 (126) Room Air 07/14/18 14:15 98.4 88 22 189/111 (137) Room Air Blood pressures are in an appropriate range on the labetalol vital signs are stable The abdomen is gravid soft nontender nondistended. Extremities show clubbing cyanosis. There is no Homans sign. monitor shows normal heart rate pattern with no contractions. Assessment and plan this patient is 33 weeks gestation with pre-existing hypertension now with -induced exacerbation of that high blood pressure. She is stable now on labetalol be discharged home with follow-up in clinic on her labetalol Lab work is as noted Laboratory Tests Test 07/14/18 14:25 07/14/18 15:47 07/15/18 05:30 3/19/19 06:20 Range/Units Urine Color YELLOW Urine Clarity SLIGHTLY CLOUDY Urine pH 6.5 5-9 Urine Specific [place] 1.020 1.016-1.022 Urine Protein 1+ H < 6 L 6-12 MG/DL Urine Glucose (UA) NEGATIVE NEGATIVE Urine Ketones NEGATIVE NEGATIVE Urine Nitrite NEGATIVE NEGATIVE Urine Bilirubin NEGATIVE NEGATIVE Urine Urobilinogen NORMAL NORMAL MG/DL Urine Leukocyte Esterase 1+ H NEGATIVE Urine RBC (Auto) NEGATIVE NEGATIVE Urine RBC NONE /HPF Urine WBC RARE /HPF Urine Squamous Epithelial Cells 2-5 /HPF Urine Crystals NONE /LPF Urine Amorphous Sediment RARE PETER URATES H /LPF Urine Bacteria TRACE /HPF Urine Casts NONE /LPF Urine Mucus NEGATIVE /LPF Urine Culture Indicated CULTURE PENDING White Blood Count 10.8 15.7 H 4.3-11.0 10^3/uL Red Blood Count 3.94 L 4.06 L 4.35-5.85 10^6/uL Hemoglobin 11.9 12.2 11.5-16.0 G/DL Hematocrit 35 36 35-52 % Mean Corpuscular Volume 90 90 80-99 FL Mean Corpuscular Hemoglobin 30 30 25-34 PG Mean Corpuscular Hemoglobin Concent 34 34 32-36 G/DL Red Cell Distribution Width 13.8 14.0 10.0-14.5 % Platelet Count 158 174 130-400 10^3/uL Mean Platelet Volume 13.2 H 13.4 H 7.4-10.4 FL Neutrophils (%) (Auto) 75 90 H 42-75 % Lymphocytes (%) (Auto) 16 7 L 12-44 % Monocytes (%) (Auto) 8 3 0-12 % Eosinophils (%) (Auto) 1 0 0-10 % Basophils (%) (Auto) 0 0 0-10 % Neutrophils # (Auto) 8.1 H 14.1 H 1.8-7.8 X 10^3 Lymphocytes # (Auto) 1.7 1.0 1.0-4.0 X 10^3 Monocytes # (Auto) 0.9 0.5 0.0-1.0 X 10^3 Eosinophils # (Auto) 0.1 0.0 0.0-0.3 10^3/uL Basophils # (Auto) 0.0 0.0 0.0-0.1 10^3/uL Sodium Level 137 135-145 MMOL/L Potassium Level 3.6 3.6-5.0 MMOL/L Chloride Level 107 98-107 MMOL/L Carbon Dioxide Level 20 L 21-32 MMOL/L Anion Gap 10 5-14 MMOL/L Blood Urea Nitrogen 7 7-18 MG/DL Creatinine 0.64 0.60-1.30 MG/DL Estimat Glomerular Filtration Rate > 60 BUN/Creatinine Ratio 11 Glucose Level 101 70-105 MG/DL Uric Acid 6.3 2.6-7.2 MG/DL Calcium Level 9.3 8.5-10.1 MG/DL Corrected Calcium 10.0 8.5-10.1 MG/DL Total Bilirubin 0.1 0.1-1.0 MG/DL Aspartate Amino Transf (AST/SGOT) 18 5-34 U/L Alanine Aminotransferase (ALT/SGPT) 15 0-55 U/L Alkaline Phosphatase 115 40-136 U/L Total Protein 5.9 L 6.4-8.2 GM/DL Albumin 3.1 L 3.2-4.5 GM/DL Neutrophils % (Manual) 89 % Lymphocytes % (Manual) 9 % Monocytes % (Manual) 2 % Urine Creatinine 54 30-125 MG/DL Urine Protein/Creatinine Ratio MARIN RICHEY MD Jul 15, 2018 07:44
--- NOTE | 2018-07-15 08:00 | NUR ---
DR. RICHEY HERE TO SEE PT. PLAN FOR DISCHARGE.
[2018-07-15 08:43] VITALS: BP 134/75
[2018-07-15] MEDS ORDERED: LABETALOL 200 MG (NORMODYNE) TAB PO SCH (09:00)
--- NOTE | 2018-07-15 09:00 | NUR ---
EATING BREAKFAST. WANTING TO TAKE MEDS ON FULL STOMACH.
--- NOTE | 2018-07-15 10:21 | NUR ---
PRESCRIPTION CALLED TO [facility] PER PT REQUEST FOR LABETALOL [address] RICHEY'S ORDERS.
[2018-07-15] MEDS: NITROFURANTOIN 100 MG (MACROBID) CAPSULE PO SCH (10:28)
[2018-07-15] MEDS: BETAMETHASONE ACE/NA PHOS 6 MG/ML (CELESTONE SOLUSPAN) IM SCH (10:33)
--- NOTE | 2018-07-15 10:33 | NUR ---
BETAMETHASONE 12 MG IM IN LEFT VG SITE. SITE CLEAR.
--- NOTE | 2018-07-15 10:37 | NUR ---
EFM ON FOR NST. SEE INTERVENTION.
--- NOTE | 2018-07-15 10:45 | NUR ---
DISCHARGE INSTRUCTIONS REVIEWED WITH COPY TO PT. STATES UNDERSTANDING OF ALL INSTRUCTIONS AND NEED TO F/U SCHEDULED AND NEEDED.
[2018-07-15] MEDS ORDERED: FLU QUADRIvalent (5+ YOA) 2018-2019 (AFLURIA) 0.5 ML IM ONE (11:00)
[2018-07-15 11:11] VITALS: BP 134/75
--- NOTE | 2018-07-15 11:11 | NUR ---
EFM OFF. UP TO GET DRESSED. REACTIVE NST.
[2018-07-15 11:30] VITALS: BP 134/75
--- NOTE | 2018-07-15 11:30 | NUR ---
DISMISSED FROM WS VIA W/C TO FRONT ENTRANCE TO FAMILY CAR IN STABLE CONDITION.
== END 2018-07-15 11:30 | disposition home or self-care (01) ==
LOC: LDRP 14:13 → WSo 14:13 → LDRP 07-15 07:30 → WSo 07-15 07:30
PROVIDERS: ADMIT Obstetrics & Gynecology; ATTEND Obstetrics & Gynecology
DX: O10.913 Unspecified pre-existing hypertension complicating pregnancy, third trimester (principal); Z3A.33 33 weeks gestation of pregnancy; Z79.899 Other long term (current) drug therapy; Z79.82 Long term (current) use of aspirin
CPT/HCPCS: 36415; 80053; 81000; 82570; 84156; 84550; 85007; 85025; 85027; 87088; 96360; 96361; 96372; 99211; G0378

== ENCOUNTER 2018-07-18 17:39 | Inpatient (IN) | payer OTHER ==
[~2018-07-18] VITALS: Ht 160 cm; Wt 102.1 kg
--- NOTE | 2018-07-18 06:50 | NUR ---
Pt arrives to L&D from ED care. This rn unaware of mode of arrival as this rns shift starts at 1899. Addendum: 07/18/18 at 1955 by KILLIAN ALLEN RN TIME FOR 1849
[~2018-07-18 17:39] MED LIST changes: -ASPI-586 PO; -DOCU100C37 PO; -IBUP-1780 PO; -Nifedipine PO; -OXYC1TAB12 PO
--- NOTE | 2018-07-18 18:13 | NUR ---
CALLED FOR BED
[2018-07-18 18:15] LABS: BASOPHILS # (AUTO) 0.1 10^3/uL (0.0-0.1); BASOPHILS % (AUTO) 0 % (0-10); EOSINOPHILS # (AUTO) 0.1 10^3/uL (0.0-0.3); EOSINOPHILS % (AUTO) 1 % (0-10); HEMATOCRIT 37 % (35-52); HEMOGLOBIN 12.4 G/DL (11.5-16.0); LYMPHOCYTES # (AUTO) 2.2 X 10^3 (1.0-4.0); LYMPHOCYTES % (AUTO) 14 % (12-44); MEAN CORPUSCULAR HEMOGLOBIN 30 PG (25-34); MEAN CORPUSCULAR HGB CONC 34 G/DL (32-36); MEAN CORPUSCULAR VOLUME 90 FL (80-99); MEAN PLATELET VOLUME 12.8 FL (7.4-10.4); MONOCYTES # (AUTO) 1.6 X 10^3 (0.0-1.0); MONOCYTES % (AUTO) 11 % (0-12); NEUTROPHILS # (AUTO) 11.4 X 10^3 (1.8-7.8); NEUTROPHILS % (AUTO) 74 % (42-75); PLATELET COUNT 134 10^3/uL (130-400); WHITE BLOOD COUNT 15.4 10^3/uL (4.3-11.0)
[2018-07-18] MEDS ORDERED: LABETALOL HCL 20 MG/4 ML VIAL IV ONE (18:15)
[2018-07-18 18:25] LABS: BILIRUBIN,URINE NEGATIVE (NEGATIVE); CLARITY,URINE CLEAR; COLOR,URINE YELLOW; GLUCOSE, URINE (UA) NEGATIVE (NEGATIVE); KETONES,URINE NEGATIVE (NEGATIVE); LEUKOCYTE ESTERASE ,URINE NEGATIVE (NEGATIVE); NITRITE,URINE NEGATIVE (NEGATIVE); PH,URINE 8 (5-9); PROTEIN,URINE 1+ (NEGATIVE); UROBILINOGEN,URINE NORMAL (NORMAL)
[2018-07-18 18:27] LABS: PROTHROMBIN TIME PATIENT 12.7 SEC (12.2-14.7)
[2018-07-18 18:32] LABS: ALANINE AMINOTRANSFERASE 45 U/L (0-55); ALBUMIN 3.4 GM/DL (3.2-4.5); ALKALINE PHOSPHATASE 130 U/L (40-136); BILIRUBIN,TOTAL 0.3 MG/DL (0.1-1.0); BUN/CREATININE RATIO 9; CALCIUM 9.2 MG/DL (8.5-10.1); CARBON DIOXIDE 21 MMOL/L (21-32); CHLORIDE 106 MMOL/L (98-107); CREATININE SERUM 0.65 MG/DL (0.60-1.30); GFR ESTIMATED > 60; GLUCOSE 73 MG/DL (70-105); MAGNESIUM 1.5 MG/DL (1.8-2.4); POTASSIUM 3.9 MMOL/L (3.6-5.0); SODIUM 139 MMOL/L (135-145); TOTAL PROTEIN 6.4 GM/DL (6.4-8.2)
[2018-07-18 18:34] LABS: BACTERIA,URINE NEGATIVE /HPF; SQUAMOUS EPITHELIAL CELL,UR RARE /HPF
[2018-07-18 18:34] LABS: BAND NEUTROPHILS 1 %; LYMPHOCYTES % (MANUAL) 12 %; MONOCYTES % (MANUAL) 6 %; NEUTROPHILS % (MANUAL) 73 %
[2018-07-18 18:35] LABS: EOSINOPHILS % (MANUAL) 1 %; METAMYELOCYTES % 2 %; NUCLEATED RED BLOOD CELLS 1; RBC MORPH NORMAL; REACTIVE LYMPHOCYTES 5 %
[2018-07-18 18:39] LABS: AMPHETAMINE SCREEN, URINE NEGATIVE (NEGATIVE); BARBITURATE SCREEN URINE NEGATIVE (NEGATIVE); BENZODIAZEPINES SCREEN URINE NEGATIVE (NEGATIVE); CANNABINOID SCREEN, URINE NEGATIVE (NEGATIVE); COCAINE SCREEN URINE NEGATIVE (NEGATIVE); METHADONE STAT NEGATIVE (NEGATIVE); METHAMPHETAMINE SCREEN URINE S NEGATIVE (NEGATIVE); OPIATE SCREEN URINE NEGATIVE (NEGATIVE); OXYCODONE STAT NEGATIVE (NEGATIVE); PROPOXYPHENE STAT NEGATIVE (NEGATIVE); TRICYCLIC ANTIDEPRESSANTS SCRE NEGATIVE (NEGATIVE)
--- NOTE | 2018-07-18 18:50 | NUR ---
SEE NOTE TIMED FOR 6217
[2018-07-18 18:52] LABS: TSH (THYROID ANALYZER) 2.78 UIU/ML (0.35-4.94)
--- NOTE | 2018-07-18 18:56 | ED General ---
General Chief Complaint: Neurological Problems Stated Complaint: UNCONTROLLED HTN, 34 WKS GESTATION Nursing Triage Note: AMB TO ROOM CRYING WITH FOR A WEEK OR MORE HAS FELT NUMBNESS ON BOTH SIDES OF HER FACE IS APX 34 WEEKS PREG. THIS AM FELT LIKE SHE TODAY IT WAS WORSE. Nursing Sepsis Screen: No Definite Risk Source of Information: Patient History of Present Illness Date Seen by Provider: Jul 18, 2018 Time Seen by Provider: 17:58 Initial Comments PT ARRIVES VIA POV FROM HOME PT IS 34 WEEKS , PT OF DR. RICHEY'S C/O BILATERAL FACIAL NUMBNESS AND TINGLING FROM CHEEKS --LEVEL OF NOSE --TO CHIN , FOR A COUPLE OF WEEKS PT STATES TODAY AROUND 1630, THE LEFT SIDE OF HER LIPS WON'T WORK RIGHT NO PROBLEMS SWALLOWING OR CHEWING, NO BITING OF TONGUE, NO NUMBNESS TO TONGUE OR INSIDE OF MOUTH NO PAIN NO HEADACHE NO VISION CHANGES NO DIZZINESS NO NAUSEA/VOMITING HAS HAD SOME CHEST PAIN AND SHORTNESS OF BREATH OFF AND ON HAS MILD SWELLING OF FEET, AND IS NO DIFFERENT TODAY PT HAD HTN PRIOR TO BECOMING , AND BP HAS BEEN VERY HIGH RECENTLY HAS BEEN SEEING DR. RICHEY TWICE A WEEK AND SAW HIM TODAY--STATES BP IN THE OFFICE WAS 151/100 PT WAS HOSPITALIZED EARLIER THIS WEEK ON SATURDAY AND SATURDAY FOR HTN STATES SHE HAS HAD ISSUES WITH PROTEIN IN URINE WITH THIS , AND HAD LAB AND UA DONE TODAY AT DR. RICHEY'S PT IS CURRENTLY ON LABETALOL 200 MG BID. LAST DOSE WAS 0730 THIS AM Allergies and Home Medications Allergies Coded Allergies: Sulfa (Sulfonamide Antibiotics) (Verified Allergy, Unknown, 03/25/18) Home Medications Labetalol HCl 200 Mg Tablet, 200 MG PO BID Prescribed by: MARIN JONES on 07/15/18 0740 Vit W-Ca,Fe,FA(<1 mg) 1 Each Tablet, 1 EACH PO DAILY, (Reported) Patient Home Medication List Home Medication List Reviewed: Yes Review of Systems Review of Systems Constitutional: no symptoms reported; No diaphoresis, No dizziness, No malaise , No weakness EENTM: see HPI Respiratory: see HPI Cardiovascular: see HPI Gastrointestinal: no symptoms reported Genitourinary: see HPI : Yes Musculoskeletal: no symptoms reported Skin: no symptoms reported Psychiatric/Neurological: See HPI Hematologic/Lymphatic: No Symptoms Reported Immunological/Allergic: no symptoms reported Past Ysbiaxx-Aoffgz-Tewzfr Hx Patient Social History Alcohol Use: Denies Use Recreational Drug Use: No Smoking Status: Former Smoker Type Used: Cigarettes 2nd Hand Smoke Exposure: No Recent Foreign Travel: No Contact w/Someone Who Travel: No Recent Infectious Disease Expo: No Recent Hopitalizations: No Immunizations Up To Date Date of Influenza Vaccine: Feb 26, 2018 Seasonal Allergies Seasonal Allergies: No Past Medical History Surgeries: Yes (WISDOM TEETH) Respiratory: No Cardiac: Yes Hypertension Neurological: No : Yes Reproductive Disorders: No Genitourinary: No Gastrointestinal: No Musculoskeletal: No Endocrine: No HEENT: No Cancer: No Psychosocial: No Integumentary: No Blood Disorders: No Family Medical History Heart Disease, Diabetes, Hypertension, Psychiatric Problems Physical Exam Vital Signs Vital Signs - First Documented 07/18/18 17:52 Temp 97.3 Pulse 73 Resp 18 B/P (MAP) 207/117 (147) Pulse Ox 100 O2 Delivery Room Air Capillary Refill : Less Than 3 Seconds Height, Weight, BMI Height: 5'3.00" Weight: 225lbs. 0.0oz. [id number]; 41.3 BMI Method:Stated General Appearance: No Apparent Distress, WD/WN, Anxious (CRYING) HEENT: PERRL/EOMI, Normal ENT Inspection, Other (SLIGHT DROOP TO LEFT LOWER FACE/LIPS, NO EYE OR FOREHEAD INVOLVEMENT) Neck: Full Range of Motion, Normal Inspection, Non Tender, Supple; No Carotid Bruit, No JVD Respiratory: Normal Breath Sounds, No Accessory Muscle Use, No Respiratory Distress Cardiovascular: Regular Rate, Rhythm, No Murmur, Normal Peripheral Pulses, Other (TRACE EDEMA BILATERALLY) Gastrointestinal: Normal Bowel Sounds, Non Tender, Other (GRAVID UTERUS) Back: No CVA Tenderness Extremity: Non Tender, No Calf Tenderness, Pedal Edema (TRACE BILATERALLY) Neurologic/Psychiatric: Alert, Oriented x3, Facial Droop (SLIGHT ON LEFT , MOSTLY NOTED TO LOWER FACE AND LEFT SIDE OF MOUTH/LIPS. TONGUE MIDLINE); No Sensory Deficit (HAS SENSATION TO FACE, BUT STATES ON LIGHT TOUCH IT FEELS TINGLY --EQUAL BILATERALLY) Skin: Normal Color, Warm/Dry; No Rash Progress/Results/Core Measures Suspected Sepsis Recent Fever Within 48 Hours: No Infection Criteria Present: None New/Unexplained Altered Menta: No Sepsis Screen: No Definite Risk SIRS Temperature:97.3 Pulse: 73 Respiratory Rate: 18 Laboratory Tests 07/18/18 18:09: White Blood Count 15.4H Blood Pressure 207 /117 Mean: 147 Laboratory Tests 07/18/18 18:09: Creatinine 0.65, INR Comment 1.0, Platelet Count 134, Total Bilirubin 0.3 Results/Orders Lab Results Laboratory Tests Test 07/18/18 18:09 07/18/18 18:19 Range/Units White Blood Count 15.4 H 4.3-11.0 10^3/uL Red Blood Count 4.11 L 4.35-5.85 10^6/uL Hemoglobin 12.4 11.5-16.0 G/DL Hematocrit 37 35-52 % Mean Corpuscular Volume 90 80-99 FL Mean Corpuscular Hemoglobin 30 25-34 PG Mean Corpuscular Hemoglobin Concent 34 32-36 G/DL Red Cell Distribution Width 14.0 10.0-14.5 % Platelet Count 134 130-400 10^3/uL Mean Platelet Volume 12.8 H 7.4-10.4 FL Neutrophils (%) (Auto) 74 42-75 % Lymphocytes (%) (Auto) 14 12-44 % Monocytes (%) (Auto) 11 0-12 % Eosinophils (%) (Auto) 1 0-10 % Basophils (%) (Auto) 0 0-10 % Neutrophils # (Auto) 11.4 H 1.8-7.8 X 10^3 Lymphocytes # (Auto) 2.2 1.0-4.0 X 10^3 Monocytes # (Auto) 1.6 H 0.0-1.0 X 10^3 Eosinophils # (Auto) 0.1 0.0-0.3 10^3/uL Basophils # (Auto) 0.1 0.0-0.1 10^3/uL Neutrophils % (Manual) 73 % Lymphocytes % (Manual) 12 % Monocytes % (Manual) 6 % Eosinophils % (Manual) 1 % Metamyelocytes % 2 % Band Neutrophils 1 % Nucleated Red Blood Cells 1 Reactive Lymphocytes 5 % Blood Morphology Comment NORMAL Prothrombin Time 12.7 12.2-14.7 SEC INR Comment 1.0 0.8-1.4 Activated Partial Thromboplast Time 29 24-35 SEC Sodium Level 139 135-145 MMOL/L Potassium Level 3.9 3.6-5.0 MMOL/L Chloride Level 106 98-107 MMOL/L Carbon Dioxide Level 21 21-32 MMOL/L Anion Gap 12 5-14 MMOL/L Blood Urea Nitrogen 6 L 7-18 MG/DL Creatinine 0.65 0.60-1.30 MG/DL Estimat Glomerular Filtration Rate > 60 BUN/Creatinine Ratio 9 Glucose Level 73 70-105 MG/DL Calcium Level 9.2 8.5-10.1 MG/DL Corrected Calcium 9.7 8.5-10.1 MG/DL Magnesium Level 1.5 L 1.8-2.4 MG/DL Total Bilirubin 0.3 0.1-1.0 MG/DL Aspartate Amino Transf (AST/SGOT) 56 H 5-34 U/L Alanine Aminotransferase (ALT/SGPT) 45 0-55 U/L Alkaline Phosphatase 130 40-136 U/L Total Protein 6.4 6.4-8.2 GM/DL Albumin 3.4 3.2-4.5 GM/DL Urine Color YELLOW Urine Clarity CLEAR Urine pH 8 5-9 Urine Specific [place] 1.010 L 1.016-1.022 Urine Protein 1+ H NEGATIVE Urine Glucose (UA) NEGATIVE NEGATIVE Urine Ketones NEGATIVE NEGATIVE Urine Nitrite NEGATIVE NEGATIVE Urine Bilirubin NEGATIVE NEGATIVE Urine Urobilinogen NORMAL NORMAL MG/DL Urine Leukocyte Esterase NEGATIVE NEGATIVE Urine RBC (Auto) NEGATIVE NEGATIVE Urine RBC NONE /HPF Urine WBC NONE /HPF Urine Squamous Epithelial Cells RARE /HPF Urine Crystals NONE /LPF Urine Bacteria NEGATIVE /HPF Urine Casts NONE /LPF Urine Mucus NEGATIVE /LPF Urine Culture Indicated NO Urine Opiates Screen NEGATIVE NEGATIVE Urine Oxycodone Screen NEGATIVE NEGATIVE Urine Methadone Screen NEGATIVE NEGATIVE Urine Propoxyphene Screen NEGATIVE NEGATIVE Urine Barbiturates Screen NEGATIVE NEGATIVE Ur Tricyclic Antidepressants Screen NEGATIVE NEGATIVE Urine Phencyclidine Screen NEGATIVE NEGATIVE Urine Amphetamines Screen NEGATIVE NEGATIVE Urine Methamphetamines Screen NEGATIVE NEGATIVE Urine Benzodiazepines Screen NEGATIVE NEGATIVE Urine Cocaine Screen NEGATIVE NEGATIVE Urine Cannabinoids Screen NEGATIVE NEGATIVE My Orders Orders - LUIS GAYLE DO Cbc With Automated Diff (07/18/18 18:00) Comprehensive Metabolic Panel (07/18/18 18:00) Drug Screen Stat (Urine) (07/18/18 18:00) Magnesium (07/18/18 18:00) Protime With Inr (07/18/18 18:00) Partial Thromboplastin Time (07/18/18 18:00) Thyroid Analyzer (07/18/18 18:00) Ua Culture If Indicated (07/18/18 18:00) Saline Lock/Iv-Start (07/18/18 18:00) Ekg Tracing (07/18/18 18:00) Monitor-Rhythm Ecg Trace Only (07/18/18 18:00) Manual Differential (07/18/18 18:09) Labetalol Injection (Normodyne Injection (07/18/18 18:15) Vital Signs/I&O 07/18/18 17:52 Temp 97.3 Pulse 73 Resp 18 B/P (MAP) 207/117 (147) Pulse Ox 100 O2 Delivery Room Air Capillary Refill : Less Than 3 Seconds Blood Pressure Mean: 147 Progress Note : Progress Note GIVEN LABETALOL 40 MG IV IN ER, AND BP DOWN TO 150'S/100'S AT TIME OF ADMIT. ECG Initial ECG Impression Date: Jul 18, 2018 Initial ECG Impression Time: 18:15 Initial ECG Rate: 54 Initial ECG Rhythm: Normal Sinus Departure Communication (Admissions) 3842--SPOKE WITH ROSSI ROBLERO, DOES NOT FEEL THAT MRI IS NEEDED EMERGENTLY TONIGHT, HE ADVISES TO ADMIT TO [facility], AND INCREASE LABETALOL TO 400 MG PO BID. HE STATES THAT SHE HAS NOT MET CRITERIA FOR PRE-ECLAMPSIA AT THIS POINT. WILL HAVE STAFF CALL HIM WHEN PT ARRIVES UPSTAIRS FOR FURTHER ORDERS. Impression Primary Impression: Uncontrolled hypertension Additional Impressions: 34 weeks gestation of Facial numbness Weakness on left side of face Disposition: ADMITTED INPATIENT Condition: Improved Admissions Decision to Admit Reason: Admit from ER (General) Decision to Admit/Date: Jul 18, 2018 Time/Decision to Admit Time: 18:10 Departure-Patient Inst. Referrals: MARIN RICHEY MD (PCP) Primary Care Physician FABRIZIO SZYMANSKI MD (Family) Primary Care Physician LUIS GAYLE DO Jul 18, 2018 18:56
[2018-07-18 19:00] VITALS: BP 147/90
[2018-07-18] MEDS ORDERED: LABETALOL 200 MG (NORMODYNE) TAB PO NR (19:30)
[2018-07-18] MEDS ORDERED: LABETALOL 200 MG (NORMODYNE) TAB PO ONE (19:32)
[2018-07-18] MEDS ORDERED: ASPI-586 PO ×2 (20:06)
[2018-07-18 20:27] VITALS: BP 184/91
[2018-07-18 20:30] VITALS: BP 183/95
--- NOTE | 2018-07-18 20:33 | NUR ---
currently on unit, updated on current blood pressure, orders for urine protein creatinine ratio on current u/a held in lab from er haley today.
[2018-07-18] MEDS ORDERED: predniSONE 20 MG TAB ONE (20:36)
--- NOTE | 2018-07-18 20:42 | History & Physical ---
History and Physical Date Seen by Provider: Jul 18, 2018 Time Seen by Provider: 20:33 This patient is a 27-year-old primigravida gravid white female with an EDC of 5 [phone] putting her now at 34 weeks gestation. Her history is significant for pre- existing hypertension predating the . Her blood pressures have been persistently elevated throughout the . She currently is on labetalol 200 mg twice a day with blood pressures typically running in the 140s over 90s. Her blood pressures have been elevated today beyond that. She was seen in my clinic on this date and pre-preeclampsia lab work was performed that was below the threshold for diagnosis of preeclampsia. Through the day she began to experiencing facial numbness and tingling. She presented to the emergency department this evening. Evaluation there included repeat lab work does show now elevated liver enzymes, confirms 1 pros proteinuria we had seen in clinic, urine protein creatinine ratio was not repeated and I have ordered that, platelets count is 134,000 with shows some decreased. 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 Patient was sent to labor and delivery for further evaluation. Currently the patient appears comfortable. Her blood pressures in the 140/90s range she denies contractions rupture membranes or bleeding. She does feel baby moving. Repeat labs are as follows Laboratory Tests Test 07/18/18 18:09 07/18/18 18:19 Range/Units White Blood Count 15.4 H 4.3-11.0 10^3/uL Red Blood Count 4.11 L 4.35-5.85 10^6/uL Hemoglobin 12.4 11.5-16.0 G/DL Hematocrit 37 35-52 % Mean Corpuscular Volume 90 80-99 FL Mean Corpuscular Hemoglobin 30 25-34 PG Mean Corpuscular Hemoglobin Concent 34 32-36 G/DL Red Cell Distribution Width 14.0 10.0-14.5 % Platelet Count 134 130-400 10^3/uL Mean Platelet Volume 12.8 H 7.4-10.4 FL Neutrophils (%) (Auto) 74 42-75 % Lymphocytes (%) (Auto) 14 12-44 % Monocytes (%) (Auto) 11 0-12 % Eosinophils (%) (Auto) 1 0-10 % Basophils (%) (Auto) 0 0-10 % Neutrophils # (Auto) 11.4 H 1.8-7.8 X 10^3 Lymphocytes # (Auto) 2.2 1.0-4.0 X 10^3 Monocytes # (Auto) 1.6 H 0.0-1.0 X 10^3 Eosinophils # (Auto) 0.1 0.0-0.3 10^3/uL Basophils # (Auto) 0.1 0.0-0.1 10^3/uL Neutrophils % (Manual) 73 % Lymphocytes % (Manual) 12 % Monocytes % (Manual) 6 % Eosinophils % (Manual) 1 % Metamyelocytes % 2 % Band Neutrophils 1 % Nucleated Red Blood Cells 1 Reactive Lymphocytes 5 % Blood Morphology Comment NORMAL Prothrombin Time 12.7 12.2-14.7 SEC INR Comment 1.0 0.8-1.4 Activated Partial Thromboplast Time 29 24-35 SEC Sodium Level 139 135-145 MMOL/L Potassium Level 3.9 3.6-5.0 MMOL/L Chloride Level 106 98-107 MMOL/L Carbon Dioxide Level 21 21-32 MMOL/L Anion Gap 12 5-14 MMOL/L Blood Urea Nitrogen 6 L 7-18 MG/DL Creatinine 0.65 0.60-1.30 MG/DL Estimat Glomerular Filtration Rate > 60 BUN/Creatinine Ratio 9 Glucose Level 73 70-105 MG/DL Calcium Level 9.2 8.5-10.1 MG/DL Corrected Calcium 9.7 8.5-10.1 MG/DL Magnesium Level 1.5 L 1.8-2.4 MG/DL Total Bilirubin 0.3 0.1-1.0 MG/DL Aspartate Amino Transf (AST/SGOT) 56 H 5-34 U/L Alanine Aminotransferase (ALT/SGPT) 45 0-55 U/L Alkaline Phosphatase 130 40-136 U/L Total Protein 6.4 6.4-8.2 GM/DL Albumin 3.4 3.2-4.5 GM/DL TSH [place] Testing 2.78 0.35-4.94 UIU/ML Urine Color YELLOW Urine Clarity CLEAR Urine pH 8 5-9 Urine Specific [place] 1.010 L 1.016-1.022 Urine Protein 1+ H NEGATIVE Urine Glucose (UA) NEGATIVE NEGATIVE Urine Ketones NEGATIVE NEGATIVE Urine Nitrite NEGATIVE NEGATIVE Urine Bilirubin NEGATIVE NEGATIVE Urine Urobilinogen NORMAL NORMAL MG/DL Urine Leukocyte Esterase NEGATIVE NEGATIVE Urine RBC (Auto) NEGATIVE NEGATIVE Urine RBC NONE /HPF Urine WBC NONE /HPF Urine Squamous Epithelial Cells RARE /HPF Urine Crystals NONE /LPF Urine Bacteria NEGATIVE /HPF Urine Casts NONE /LPF Urine Mucus NEGATIVE /LPF Urine Culture Indicated NO Urine Opiates Screen NEGATIVE NEGATIVE Urine Oxycodone Screen NEGATIVE NEGATIVE Urine Methadone Screen NEGATIVE NEGATIVE Urine Propoxyphene Screen NEGATIVE NEGATIVE Urine Barbiturates Screen NEGATIVE NEGATIVE Ur Tricyclic Antidepressants Screen NEGATIVE NEGATIVE Urine Phencyclidine Screen NEGATIVE NEGATIVE Urine Amphetamines Screen NEGATIVE NEGATIVE Urine Methamphetamines Screen NEGATIVE NEGATIVE Urine Benzodiazepines Screen NEGATIVE NEGATIVE Urine Cocaine Screen NEGATIVE NEGATIVE Urine Cannabinoids Screen NEGATIVE NEGATIVE Patient denies headache, shortness of breath nausea vomiting. She does have the fascial characteristics of a Schrader's palsy. She has no other neurologic signs or symptoms at this time. Her face does appear somewhat edematous but that has been noted as progresses Allergies are to sulfa drugs which causes a rash Medications are vitamins, Claritin, labetalol 200 mg twice a day, low- dose aspirin daily, Medical social and surgical histories are per the antepartum record Ultrasound performed on this date in my clinic showed a fetus appropriate for gestational age. Biophysical profile was 8 out of 8, GILDARDO was in the normal range, the placenta did seem a bit over mature for 34 weeks gestation HEENT exam is consistent with a left fifth nerve palsy. Does not appear that the ocular movements are affected. Neck is supple no lymphadenopathy no thyromegaly Abdomen is gravid soft nontender nondistended Extremities show no clubbing cyanosis. There is no Homans sign. DTRs are normal Pelvic exam per the nurse on admission shows cervix thick and closed Assessment and plan 34 week gestation in a patient who is threatening to develop severe preeclampsia. Thus far she has had pre-existing hypertension with -induced exacerbation of blood pressure problem. Her blood pressure has been adequately controlled thus far with labetalol and will continue to adjust medication to maintain control of her blood pressure. We'll recheck the urine protein creatinine ratio to see if that hasn't demonstrated any change through the day since my check this morning patient does understand that if and when she develops overt preeclampsia that delivery likely would be warranted certainly in the case of severe preeclampsia. Concerned that she may have some progression in that direction already with a platelet count having appeared to decrease and her liver enzymes elevating. We will pay close attention to blood pressures and other signs symptoms and indications of progression of preeclampsia Patient has been reassured in relation to the diagnosis of Schrader's palsy that the expectation is for complete recovery in the short-term we will prescribed prednisone 10 mg twice a day. Severe PIH, Allergies and Home Medications Allergies Coded Allergies: Sulfa (Sulfonamide Antibiotics) (Verified Allergy, Unknown, 03/25/18) Home Medications Aspirin 81 Mg Tablet.dr, 81 MG PO DAILY, (Reported) Labetalol HCl 200 Mg Tablet, 200 MG PO BID Prescribed by: MARIN JONES on 07/15/18 0740 Vit W-Ca,Fe,FA(<1 mg) 1 Each Tablet, 1 EACH PO DAILY, (Reported) Patient Home Medication List Home Medication List Reviewed: Yes MARIN RICHEY MD Jul 18, 2018 20:42
[2018-07-18] MEDS ORDERED: predniSONE 10 MG TAB PO ONE (21:00)
[2018-07-18] MEDS ORDERED: METOCLOPRAMIDE INJ 10 MG/2 ML (REGLAN) ONE (21:05)
[2018-07-18] MEDS ORDERED: CITRIC ACID/SOB CIT (BICITRA) 30 ML UDC ONE (21:05)
[2018-07-18] MEDS ORDERED: metroNIDAZOLE 500MG/100ML IVPB 100 ML ONE (21:05)
[2018-07-18] MEDS ORDERED: FAMOTIDINE 20MG/2ML IV (PEPCID) ONE (21:06)
[2018-07-18] MEDS ORDERED: D5 LR IV SOLUTION 1,000 ML IV SCH (21:09)
[2018-07-18] MEDS ORDERED: OXYTOCIN/NORMAL SALINE 500 ML IV SCH (21:11)
--- NOTE | 2018-07-18 21:14 | Progress Note-Pre Operative ---
Pre-Operative Progress Note H&P Reviewed The H&P was reviewed, patient examined and no changes noted. 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
[2018-07-18] MEDS ORDERED: MEPERIDINE (DEMEROL) INJ 100 MG/ML IM PRN (21:15)
[2018-07-18] MEDS ORDERED: ONDANSETRON 4 MG/2 ML (SDV) Z0FRAN IVP PRN (21:15)
[2018-07-18] MEDS ORDERED: TETANUS,DIPTH,PERTUSS P/F (BOOSTRIX) 0.5 ML VIAL IM ONE (21:15)
[2018-07-18] MEDS ORDERED: metroNIDAZOLE 500MG/100ML IVPB 100 ML IV ONE (21:15)
[2018-07-18] MEDS ORDERED: MAGNESIUM SULFATE DRIP 500 ML IV SCH (21:15)
[2018-07-18] MEDS ORDERED: ceFAZolin INJECTION 2,000 MG in WATER (STERILE) FOR INJECTION 10 ML IV ONE (21:15)
[2018-07-18] MEDS ORDERED: PROMETHAZINE INJ 25 MG/ML (PHENERGAN) AMP IM PRN (21:15)
[2018-07-18] MEDS ORDERED: D5 LR IV SOLUTION 1,000 ML IV ONE (21:19)
[2018-07-18 21:24] VITALS: BP 188/102
[2018-07-18] MEDS ORDERED: LACTATED RINGERS 1,000 ML IV SCH ×2 (21:26)
[2018-07-18 21:30] VITALS: BP 189/100
[2018-07-18] MEDS ORDERED: CITRIC ACID/SOB CIT (BICITRA) 30 ML UDC PO ONE (21:30)
[2018-07-18] MEDS ORDERED: METOCLOPRAMIDE INJ 10 MG/2 ML (REGLAN) IV ONE (21:30)
[2018-07-18] MEDS ORDERED: FAMOTIDINE 20MG/2ML IV (PEPCID) IV ONE (21:30)
[2018-07-18] MEDS ORDERED: ONDANSETRON 4 MG/2 ML (SDV) Z0FRAN ONE (21:31)
[2018-07-18] MEDS ORDERED: LIDOCAINE PF 2% 5 ML (XYLOCAINE) VIAL ONE (21:32)
[2018-07-18] MEDS ORDERED: BUPIVACAINE SPINAL 0.75% (SENSORCAINE) 2 ML AMP ONE ×2 (21:32→21:51)
[2018-07-18] MEDS ORDERED: fentaNYL INJECTION 100 MCG/2 ML AMP ONE (21:34)
[2018-07-18] MEDS ORDERED: OXYTOCIN/NORMAL SALINE 1,000 ML IV ONE (21:39)
--- NOTE | 2018-07-18 21:40 | NUR ---
18 Renan to L AC X1 stick kept as SL per this rn. 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
[2018-07-18] MEDS: ceFAZolin 2 GM IV Premixed 50 ML ONE (21:43)
[2018-07-18] MEDS: KETOROLAC 30 MG/ML VIAL IVP SCH (22:36)
[2018-07-18] MEDS ORDERED: KETOROLAC 30 MG/ML VIAL ONE (22:36)
[2018-07-18] MEDS ORDERED: BUPIVACAINE 0.25% 30 ML (SENSORCAINE) VIAL ONE (22:36)
[2018-07-18] MEDS ORDERED: diphenhydrAMINE 50 MG/ML INJ (BENADRYL) IV PRN (23:15)
[2018-07-18] MEDS ORDERED: METOCLOPRAMIDE INJ 10 MG/2 ML (REGLAN) IV PRN (23:15)
[2018-07-18] MEDS ORDERED: ONDANSETRON 4 MG/2 ML (SDV) Z0FRAN IV PRN (23:15)
[2018-07-18] MEDS ORDERED: NALOXONE 0.4 MG/ML 1 ML (NARCAN) VIAL IV PRN ×2 (23:15)
[2018-07-18 23:55] VITALS: BP 181/114
[2018-07-19] VITALS (13 sets, daily range): BP systolic 124–181; BP diastolic 81–124
--- NOTE | 2018-07-19 | NUR ---
Pt moved from recovery at 2350 and report received, pt alert and orientated at this time with no complaints. pt able to move lower extremities with minimal assist. VS obtained and reflexes checked. Pt orientated to the room and resting with family at bedside.
--- NOTE | 2018-07-19 00:14 | NUR ---
updated on vs, orders for 40mg labetalol iv now.
[2018-07-19] MEDS ORDERED: LABETALOL HCL 20 MG/4 ML VIAL IV ONE ×4 (00:15→03:30)
--- NOTE | 2018-07-19 01:03 | NUR ---
called unit, update on 99 vs, orders for labetalol 80mg iv given over 10min.
[2018-07-19] MEDS: ceFAZolin 2 GM IV Premixed 50 ML ONE (01:54)
--- NOTE | 2018-07-19 02:01 | NUR ---
notified of vs, orders for repeat dose of 80mg iv labetalol now.
--- NOTE | 2018-07-19 03:02 | NUR ---
updated on vs, orders for 60ml iv labetalol iv now.
--- NOTE | 2018-07-19 04:04 | NUR ---
notified of vs, orders for procardia 10mg IR now, if bp is elevated in 1 hour may give 20mg IR.
[2018-07-19] MEDS ORDERED: NIFEdipine 10 MG CAPS (WOMEN'S SERVICES ONLY!!!) PO ONE ×2 (04:05→04:15)
[2018-07-19] MEDS: KETOROLAC 30 MG/ML VIAL IVP SCH ×2 (04:11→11:53)
--- NOTE | 2018-07-19 05:00 | NUR ---
L AC 18 Renan peripheral IV to SL. site wnl
--- NOTE | 2018-07-19 05:18 | OPERATIVE REPORT ---
DATE OF SERVICE: 07/18/2018 PREOPERATIVE DIAGNOSIS: A 34-week with severe preeclampsia/HELLP syndrome. POSTOPERATIVE DIAGNOSES: A 34-week with severe preeclampsia/ HELLP syndrome. OPERATIVE PROCEDURE: Primary low transverse delivery of a viable male with Apgars Of 7 and 8 at 1 and 5 minutes respectively. Weight of 4 pounds 13 ounces, time of 2205 and a cord blood gas of 7.35. OPERATIVE DESCRIPTION: With the patient in supine position under satisfactory spinal anesthesia, she was prepped and draped in usual fashion for abdominal surgery. Bui catheter was placed in the urinary bladder. A Pfannenstiel incision was made through skin with a scalpel. The patient's abdomen entered in the usual manner. Bladder retractor placed in position, clean scalpel used to make a 4 cm hysterotomy incision transversely across lower uterine segment. A small amount of amniotic fluid was released on hysterotomy. That incision was extended transversely by blunt dissection. A vigorous viable male was then delivered via the uterine incision by fundal pressure. The was bulb suctioned on delivery of the head and then again on completion of delivery, the umbilical cord was pulsatile and the patient's bleeding was minimal, so clamping the cord was delayed until it was relatively pulseless and the cord was doubly clamped and cut and the infant passed to the pediatric nurse in attendance for delivery. Cord bloods were obtained. Placenta was delivered spontaneously Loo. It was normal with a 3-vessel cord. The uterus was exteriorized and interior wiped clean with a wet laparotomy sponge. Uterine incision closed in a running locked suture of 2-0 Vicryl. Hemostasis was complete after placement of a [id number] suture in the mid portion of the closure to achieve complete hemostasis. The uterus was returned to abdominal cavity. All blood clot and debris was removed from the abdominal cavity. With sponge, needle counts correct and hemostasis assured, anterior parietal peritoneum was closed with a running suture of 2-0 Vicryl. Rectus muscles were closed with that suture as well. The rectus fascia was closed with 2-0 Vicryl, subcutaneous tissue with 2-0 Vicryl, and the skin was stapled. Sponge and needle counts were correct on completion of the procedure. Estimated blood loss was around 350 mL. The patient tolerated the procedure well and was transferred to the recovery room in stable condition to continue on magnesium for seizure prophylaxis. The had been taken stable to the full term nursery under the care of Dr. Peralta. Job ID: [id number] DocumentID: [id number] Dictated Date: 07/18/2018 22:43:17 Production Team Manager Date: 07/19/2018 05:17:41 Dictated By: MARIN RICHEY MD MTDD
--- NOTE | 2018-07-19 05:37 | NUR ---
contacted unit for update, vs reviewed, orders to discontinue labetalol and to report am labs.
--- NOTE | 2018-07-19 05:58 | NUR ---
lab to bedside for blood draw
[2018-07-19 06:16] LABS: BASOPHILS # (AUTO) 0.1 10^3/uL (0.0-0.1); BASOPHILS % (AUTO) 0 % (0-10); EOSINOPHILS % (AUTO) 0 % (0-10); HEMATOCRIT 33 % (35-52); HEMOGLOBIN 11.1 G/DL (11.5-16.0); LYMPHOCYTES # (AUTO) 1.5 X 10^3 (1.0-4.0); LYMPHOCYTES % (AUTO) 9 % (12-44); MEAN CORPUSCULAR HEMOGLOBIN 30 PG (25-34); MEAN CORPUSCULAR HGB CONC 34 G/DL (32-36); MEAN CORPUSCULAR VOLUME 90 FL (80-99); MEAN PLATELET VOLUME 12.9 FL (7.4-10.4); MONOCYTES # (AUTO) 1.4 X 10^3 (0.0-1.0); MONOCYTES % (AUTO) 8 % (0-12); NEUTROPHILS # (AUTO) 14.3 X 10^3 (1.8-7.8); NEUTROPHILS % (AUTO) 83 % (42-75); PLATELET COUNT 125 10^3/uL (130-400); WHITE BLOOD COUNT 17.3 10^3/uL (4.3-11.0)
[2018-07-19 06:44] LABS: ALANINE AMINOTRANSFERASE 48 U/L (0-55); ALBUMIN 2.9 GM/DL (3.2-4.5); ALKALINE PHOSPHATASE 107 U/L (40-136); BILIRUBIN,TOTAL 0.2 MG/DL (0.1-1.0); BUN/CREATININE RATIO 10; CALCIUM 7.6 MG/DL (8.5-10.1); CARBON DIOXIDE 19 MMOL/L (21-32); CHLORIDE 105 MMOL/L (98-107); GFR ESTIMATED > 60; GLUCOSE 106 MG/DL (70-105); SODIUM 133 MMOL/L (135-145); TOTAL PROTEIN 5.2 GM/DL (6.4-8.2)
--- NOTE | 2018-07-19 06:51 | NUR ---
notified of lab work, orders to saline lock iv, remove camejo catheter and promote ambulation. Physician to round later this am.
--- NOTE | 2018-07-19 07:04 | NUR ---
IV Saline lock. Mag off at this time.
--- NOTE | 2018-07-19 08:00 | NUR ---
DTRS WNL AT THIS TIME.
--- NOTE | 2018-07-19 08:25 | NUR ---
ASSESSMENT COMPLETED. VSS. DR. RICHEY IN TO SEE PT. NEW ORDERS.
[2018-07-19] MEDS ORDERED: NIFEdipine ER 30 MG (PROCARDIA XL) TAB PO ONE (08:40)
--- NOTE | 2018-07-19 08:44 | Progress Note-Standard ---
Standard Progress Note Progress Notes/Assess & Plan Date Seen by a Provider: Jul 19, 2018 Time Seen by a Provider: 08:41 Progress/Assessment & Plan Patient without complaint. She denies chest pain, denies shortness breath, denies nausea vomiting, has good pain control. Patient reports that her baby is stable and doing well and improving and NICU in [place] Laboratory Tests Test 07/18/18 18:09 07/18/18 18:19 07/19/18 05:20 07/19/18 06:03 Range/Units White Blood Count 15.4 H 17.3 H 4.3-11.0 10^3/uL Red Blood Count 4.11 L 3.67 L 4.35-5.85 10^6/uL Hemoglobin 12.4 11.1 L 11.5-16.0 G/DL Hematocrit 37 33 L 35-52 % Mean Corpuscular Volume 90 90 80-99 FL Mean Corpuscular Hemoglobin 30 30 25-34 PG Mean Corpuscular Hemoglobin Concent 34 34 32-36 G/DL Red Cell Distribution Width 14.0 14.0 10.0-14.5 % Platelet Count 134 125 L 130-400 10^3/uL Mean Platelet Volume 12.8 H 12.9 H 7.4-10.4 FL Neutrophils (%) (Auto) 74 83 H 42-75 % Lymphocytes (%) (Auto) 14 9 L 12-44 % Monocytes (%) (Auto) 11 8 0-12 % Eosinophils (%) (Auto) 1 0 0-10 % Basophils (%) (Auto) 0 0 0-10 % Neutrophils # (Auto) 11.4 H 14.3 H 1.8-7.8 X 10^3 Lymphocytes # (Auto) 2.2 1.5 1.0-4.0 X 10^3 Monocytes # (Auto) 1.6 H 1.4 H 0.0-1.0 X 10^3 Eosinophils # (Auto) 0.1 0.0 0.0-0.3 10^3/uL Basophils # (Auto) 0.1 0.1 0.0-0.1 10^3/uL Neutrophils % (Manual) 73 % Lymphocytes % (Manual) 12 % Monocytes % (Manual) 6 % Eosinophils % (Manual) 1 % Metamyelocytes % 2 % Band Neutrophils 1 % Nucleated Red Blood Cells 1 Reactive Lymphocytes 5 % Blood Morphology Comment NORMAL Prothrombin Time 12.7 12.2-14.7 SEC INR Comment 1.0 0.8-1.4 Activated Partial Thromboplast Time 29 24-35 SEC Sodium Level 139 133 L 135-145 MMOL/L Potassium Level 3.9 4.0 3.6-5.0 MMOL/L Chloride Level 106 105 98-107 MMOL/L Carbon Dioxide Level 21 19 L 21-32 MMOL/L Anion Gap 12 9 5-14 MMOL/L Blood Urea Nitrogen 6 L 6 L 7-18 MG/DL Creatinine 0.65 0.60 0.60-1.30 MG/DL Estimat Glomerular Filtration Rate > 60 > 60 BUN/Creatinine Ratio 9 10 Glucose Level 73 106 H 70-105 MG/DL Calcium Level 9.2 7.6 L 8.5-10.1 MG/DL Corrected Calcium 9.7 8.5 8.5-10.1 MG/DL Magnesium Level 1.5 L 1.8-2.4 MG/DL Total Bilirubin 0.3 0.2 0.1-1.0 MG/DL Aspartate Amino Transf (AST/SGOT) 56 H 55 H 5-34 U/L Alanine Aminotransferase (ALT/SGPT) 45 48 0-55 U/L Alkaline Phosphatase 130 107 40-136 U/L Total Protein 6.4 5.2 L 6.4-8.2 GM/DL Albumin 3.4 2.9 L 3.2-4.5 GM/DL TSH [place] Testing 2.78 0.35-4.94 UIU/ML Urine Color YELLOW Urine Clarity CLEAR Urine pH 8 5-9 Urine Specific [place] 1.010 L 1.016-1.022 Urine Protein 9 9 6-12 MG/DL Urine Glucose (UA) NEGATIVE NEGATIVE Urine Ketones NEGATIVE NEGATIVE Urine Nitrite NEGATIVE NEGATIVE Urine Bilirubin NEGATIVE NEGATIVE Urine Urobilinogen NORMAL NORMAL MG/DL Urine Leukocyte Esterase NEGATIVE NEGATIVE Urine RBC (Auto) NEGATIVE NEGATIVE Urine RBC NONE /HPF Urine WBC NONE /HPF Urine Squamous Epithelial Cells RARE /HPF Urine Crystals NONE /LPF Urine Bacteria NEGATIVE /HPF Urine Casts NONE /LPF Urine Mucus NEGATIVE /LPF Urine Culture Indicated NO Urine Creatinine 15 L 79 30-125 MG/DL Urine Protein/Creatinine Ratio 0.60 0.11 Urine Opiates Screen NEGATIVE NEGATIVE Urine Oxycodone Screen NEGATIVE NEGATIVE Urine Methadone Screen NEGATIVE NEGATIVE Urine Propoxyphene Screen NEGATIVE NEGATIVE Urine Barbiturates Screen NEGATIVE NEGATIVE Ur Tricyclic Antidepressants Screen NEGATIVE NEGATIVE Urine Phencyclidine Screen NEGATIVE NEGATIVE Urine Amphetamines Screen NEGATIVE NEGATIVE Urine Methamphetamines Screen NEGATIVE NEGATIVE Urine Benzodiazepines Screen NEGATIVE NEGATIVE Urine Cocaine Screen NEGATIVE NEGATIVE Urine Cannabinoids Screen NEGATIVE NEGATIVE Uric Acid 6.0 2.6-7.2 MG/DL Lactate Dehydrogenase 292 H 125-220 U/L Patient lab work is stable and/or improving Vital Signs Date Time Temp Pulse Resp B/P (MAP) Pulse Ox O2 Delivery O2 Flow Rate FiO2 07/19/18 07:00 86 18 128/91 (103) 96 Room Air 07/19/18 06:00 74 18 124/81 (95) 94 Room Air 07/19/18 05:00 83 18 134/91 (105) 97 Room Air 07/19/18 04:00 98.6 74 18 171/118 (135) 97 Room Air 07/19/18 03:00 77 18 169/111 (130) 96 Room Air 07/19/18 02:00 80 18 161/105 (123) 95 Room Air 07/19/18 01:00 81 18 166/116 (133) 96 Room Air 07/19/18 00:10 63 18 179/124 (142) 98 Room Air 07/19/18 00:00 63 18 178/121 (140) 98 Room Air 07/19/18 00:00 61 18 181/114 (136) 07/18/18 23:55 65 18 181/114 (136) 97 Room Air 07/18/18 21:30 72 18 189/100 (129) Room Air 07/18/18 21:24 67 18 188/102 (130) Room Air 07/18/18 20:30 58 18 183/95 (124) 99 Room Air 07/18/18 20:27 56 18 184/91 (122) 99 Room Air 07/18/18 19:00 60 18 147/90 (109) 99 Room Air 07/18/18 18:41 56 18 158/98 (118) 98 Room Air 07/18/18 17:52 97.3 73 18 207/117 (147) 100 Room Air I & O 07/19/18 07:00 Intake Total 360 ml Output Total 1150 ml Balance -790 ml Blood pressures finally come under control with the change from the labetalol to Procardia The abdomen is benign. The surgical incision is clean dry and intact. Extremities show no clubbing cyanosis. There is no Homans sign. There is some pretibial pitting edema that is not new and is stable. Assessment and plan hospital day number 2 postoperative day number 1 status post primary delivery at 34 weeks' gestation due to severe preeclampsia with HELLP syndrome. Patient blood pressures have improved significantly with the change to labetalol. Her urine output is more than adequate she does appear to be covering from the preeclampsia we will stop the magnesium and we'll allow her to ambulate and a close attention to blood pressures and signs symptoms or indications of worsening preeclampsia MARIN RICHEY MD Jul 19, 2018 08:44
[2018-07-19] MEDS: NIFEdipine ER 30 MG (PROCARDIA XL) TAB PO SCH (08:55)
[2018-07-19] MEDS: DOCUSATE SODIUM 100 MG (COLACE) CAP PO SCH ×2 (08:55→20:43)
[2018-07-19] MEDS: oxyCODONE/APAP 10/325MG (PERCOCET 10) TABLET PO PRN ×2 (08:55→16:21)
[2018-07-19] MEDS: predniSONE 20 MG TAB PO SCH ×2 (08:56→20:43)
[2018-07-19] MEDS ORDERED: LABETALOL 200 MG (NORMODYNE) TAB PO SCH ×2 (09:00)
--- NOTE | 2018-07-19 09:10 | NUR ---
RIGHT SALINE LOCK D/C'ED WITH TIP INTACT. BERTRAND D/C'ED WITH 250 CC LT HUSAM URINE IN BAG. UP TO THE BATHROOM WITH ASSISTANCE. PERICARE PERFORMED WITH PAD/UNDERWEAR APPLIED. VOIDED 10 CC. MOVING WELL. RETURNED TO BED WITHOUT PROBLEMS. ENCOURAGED AMBULATION TODAY WITH ASSISTANCE. ENCOURAGED TO DO INCENTIVE SPIROMETRY Q 2 HOURS W/A.
--- NOTE | 2018-07-19 11:00 | NUR ---
PT DECLINED FLU VACCINE.
--- NOTE | 2018-07-19 12:00 | NUR ---
SITTING UP EATING. BP SLIGHTLY ELEVATED. WILL CONTINUE TO MONITOR.
--- NOTE | 2018-07-19 13:30 | NUR ---
Pt assisted up to bathroom at this time. Pt voids 1,000+ clear yellow urine. Approx 3 cm clot noted in hat, but very minimal lochia noted otherwise. Pericare performed, fresh vpad applied. Pt assisted back to bed, calf SCD's on.
--- NOTE | 2018-07-19 14:10 | NUR ---
Electric dual breast pump set up for pt at this time. Demonstrated use to pt, pt verbalizes understanding. Encouraged pt to pump ~15-20min to simulate infant feed. Instructed pt to call when finished for milk storage in nsy refrigerator and to demonstrate care of pump pieces between use.
--- NOTE | 2018-07-19 15:55 | NUR ---
DR. RICHEY CALLED TO CHECK ON PT. UPDATE GIVEN. PLAN TO DISMISS TOMORROW.
--- NOTE | 2018-07-19 16:14 | Anesthesia-Regional Post-Op ---
Regional Patient Condition Mental Status: Alert, Oriented x3 Circulation: Same as Pre-Op Headache: Absent Sensation: Full Recovery Motor Block: Absent Post Op Complications Complications None Follow Up Care/Instructions Patient Instructions None needed. Anesthesia/Patient Condition Patient is doing well, no complaints, stable vital signs, no apparent adverse anesthesia problems. No complications reported per nursing. IVETH MIN CRNA Jul 19, 2018 16:14
--- NOTE | 2018-07-19 16:15 | NUR ---
C/O HEADACHE. REQUESTS PAIN MED.
--- NOTE | 2018-07-19 16:21 | NUR ---
VSS. PERCOCET 1 TAB P.O. FOR C/O ABD PAIN.
--- NOTE | 2018-07-19 17:00 | NUR ---
AMBULATING IN THE HALLWAY WITH FAMILY MEMBERS. DOING WELL.
[2018-07-19] MEDS: IBUPROFEN 800 MG (MOTRIN) TAB PO SCH (18:05)
--- NOTE | 2018-07-19 18:15 | NUR ---
CONTINUES TO DO WELL. FAMILY AT BEDSIDE.
--- NOTE | 2018-07-19 20:30 | NUR ---
Pt presents with some anxiety in regards to suture removal in am. Pt educated on procedure then Dr Sanford arrived and re-enforced education and pt appears less anxious. Pt resting in bed with SO at bedside.
[2018-07-20] VITALS: BP 145/95
[2018-07-20] MEDS: IBUPROFEN 800 MG (MOTRIN) TAB PO SCH ×3 (00:07→12:02)
[2018-07-20] MEDS: oxyCODONE/APAP 10/325MG (PERCOCET 10) TABLET PO PRN ×3 (00:08→10:47)
--- NOTE | 2018-07-20 06:00 | NUR ---
Pt very anxious and crying this am, pt up to shower and then educated on breathing techniques to help relax.
[2018-07-20 06:23] VITALS: BP 141/99
[2018-07-20] MEDS ORDERED: FLU QUADRIvalent (5+ YOA) 2018-2019 (AFLURIA) 0.5 ML IM ONE (07:15)
--- NOTE | 2018-07-20 08:00 | NUR ---
PT SLIGHTLY TEARFUL WHEN ENTERED ROOM. STATES FEELING ANXIOUS.
--- NOTE | 2018-07-20 08:20 | NUR ---
DR. RICHEY HERE TO SEE PT. PLAN FOR DISCHARGE TODAY.
[2018-07-20 08:30] VITALS: BP 141/88
--- NOTE | 2018-07-20 08:42 | Progress Note-Standard ---
Standard Progress Note Progress Notes/Assess & Plan Date Seen by a Provider: Jul 20, 2018 Time Seen by a Provider: 08:40 Progress/Assessment & Plan Patient without complaint. She denies chest pain, denies shortness breath, denies nausea vomiting, has good pain control. Patient reports that her baby is stable and doing well and improving and NICU in [place] Laboratory Tests Test 07/18/18 18:09 07/18/18 18:19 07/19/18 05:20 07/19/18 06:03 Range/Units White Blood Count 15.4 H 17.3 H 4.3-11.0 10^3/uL Red Blood Count 4.11 L 3.67 L 4.35-5.85 10^6/uL Hemoglobin 12.4 11.1 L 11.5-16.0 G/DL Hematocrit 37 33 L 35-52 % Mean Corpuscular Volume 90 90 80-99 FL Mean Corpuscular Hemoglobin 30 30 25-34 PG Mean Corpuscular Hemoglobin Concent 34 34 32-36 G/DL Red Cell Distribution Width 14.0 14.0 10.0-14.5 % Platelet Count 134 125 L 130-400 10^3/uL Mean Platelet Volume 12.8 H 12.9 H 7.4-10.4 FL Neutrophils (%) (Auto) 74 83 H 42-75 % Lymphocytes (%) (Auto) 14 9 L 12-44 % Monocytes (%) (Auto) 11 8 0-12 % Eosinophils (%) (Auto) 1 0 0-10 % Basophils (%) (Auto) 0 0 0-10 % Neutrophils # (Auto) 11.4 H 14.3 H 1.8-7.8 X 10^3 Lymphocytes # (Auto) 2.2 1.5 1.0-4.0 X 10^3 Monocytes # (Auto) 1.6 H 1.4 H 0.0-1.0 X 10^3 Eosinophils # (Auto) 0.1 0.0 0.0-0.3 10^3/uL Basophils # (Auto) 0.1 0.1 0.0-0.1 10^3/uL Neutrophils % (Manual) 73 % Lymphocytes % (Manual) 12 % Monocytes % (Manual) 6 % Eosinophils % (Manual) 1 % Metamyelocytes % 2 % Band Neutrophils 1 % Nucleated Red Blood Cells 1 Reactive Lymphocytes 5 % Blood Morphology Comment NORMAL Prothrombin Time 12.7 12.2-14.7 SEC INR Comment 1.0 0.8-1.4 Activated Partial Thromboplast Time 29 24-35 SEC Sodium Level 139 133 L 135-145 MMOL/L Potassium Level 3.9 4.0 3.6-5.0 MMOL/L Chloride Level 106 105 98-107 MMOL/L Carbon Dioxide Level 21 19 L 21-32 MMOL/L Anion Gap 12 9 5-14 MMOL/L Blood Urea Nitrogen 6 L 6 L 7-18 MG/DL Creatinine 0.65 0.60 0.60-1.30 MG/DL Estimat Glomerular Filtration Rate > 60 > 60 BUN/Creatinine Ratio 9 10 Glucose Level 73 106 H 70-105 MG/DL Calcium Level 9.2 7.6 L 8.5-10.1 MG/DL Corrected Calcium 9.7 8.5 8.5-10.1 MG/DL Magnesium Level 1.5 L 1.8-2.4 MG/DL Total Bilirubin 0.3 0.2 0.1-1.0 MG/DL Aspartate Amino Transf (AST/SGOT) 56 H 55 H 5-34 U/L Alanine Aminotransferase (ALT/SGPT) 45 48 0-55 U/L Alkaline Phosphatase 130 107 40-136 U/L Total Protein 6.4 5.2 L 6.4-8.2 GM/DL Albumin 3.4 2.9 L 3.2-4.5 GM/DL TSH [place] Testing 2.78 0.35-4.94 UIU/ML Urine Color YELLOW Urine Clarity CLEAR Urine pH 8 5-9 Urine Specific [place] 1.010 L 1.016-1.022 Urine Protein 9 9 6-12 MG/DL Urine Glucose (UA) NEGATIVE NEGATIVE Urine Ketones NEGATIVE NEGATIVE Urine Nitrite NEGATIVE NEGATIVE Urine Bilirubin NEGATIVE NEGATIVE Urine Urobilinogen NORMAL NORMAL MG/DL Urine Leukocyte Esterase NEGATIVE NEGATIVE Urine RBC (Auto) NEGATIVE NEGATIVE Urine RBC NONE /HPF Urine WBC NONE /HPF Urine Squamous Epithelial Cells RARE /HPF Urine Crystals NONE /LPF Urine Bacteria NEGATIVE /HPF Urine Casts NONE /LPF Urine Mucus NEGATIVE /LPF Urine Culture Indicated NO Urine Creatinine 15 L 79 30-125 MG/DL Urine Protein/Creatinine Ratio 0.60 0.11 Urine Opiates Screen NEGATIVE NEGATIVE Urine Oxycodone Screen NEGATIVE NEGATIVE Urine Methadone Screen NEGATIVE NEGATIVE Urine Propoxyphene Screen NEGATIVE NEGATIVE Urine Barbiturates Screen NEGATIVE NEGATIVE Ur Tricyclic Antidepressants Screen NEGATIVE NEGATIVE Urine Phencyclidine Screen NEGATIVE NEGATIVE Urine Amphetamines Screen NEGATIVE NEGATIVE Urine Methamphetamines Screen NEGATIVE NEGATIVE Urine Benzodiazepines Screen NEGATIVE NEGATIVE Urine Cocaine Screen NEGATIVE NEGATIVE Urine Cannabinoids Screen NEGATIVE NEGATIVE Uric Acid 6.0 2.6-7.2 MG/DL Lactate Dehydrogenase 292 H 125-220 U/L Patient lab work is stable and/or improving Vital Signs Date Time Temp Pulse Resp B/P (MAP) Pulse Ox O2 Delivery O2 Flow Rate FiO2 07/19/18 07:00 86 18 128/91 (103) 96 Room Air 07/19/18 06:00 74 18 124/81 (95) 94 Room Air 07/19/18 05:00 83 18 134/91 (105) 97 Room Air 07/19/18 04:00 98.6 74 18 171/118 (135) 97 Room Air 07/19/18 03:00 77 18 169/111 (130) 96 Room Air 07/19/18 02:00 80 18 161/105 (123) 95 Room Air 07/19/18 01:00 81 18 166/116 (133) 96 Room Air 07/19/18 00:10 63 18 179/124 (142) 98 Room Air 07/19/18 00:00 63 18 178/121 (140) 98 Room Air 07/19/18 00:00 61 18 181/114 (136) 07/18/18 23:55 65 18 181/114 (136) 97 Room Air 07/18/18 21:30 72 18 189/100 (129) Room Air 07/18/18 21:24 67 18 188/102 (130) Room Air 07/18/18 20:30 58 18 183/95 (124) 99 Room Air 07/18/18 20:27 56 18 184/91 (122) 99 Room Air 07/18/18 19:00 60 18 147/90 (109) 99 Room Air 07/18/18 18:41 56 18 158/98 (118) 98 Room Air 07/18/18 17:52 97.3 73 18 207/117 (147) 100 Room Air I & O 07/19/18 07:00 Intake Total 360 ml Output Total 1150 ml Balance -790 ml Blood pressures finally come under control with the change from the labetalol to Procardia The abdomen is benign. The surgical incision is clean dry and intact. Extremities show no clubbing cyanosis. There is no Homans sign. There is some pretibial pitting edema that is not new and is stable. Assessment and plan hospital day number 2 postoperative day number 1 status post primary delivery at 34 weeks' gestation due to severe preeclampsia with HELLP syndrome. Patient blood pressures have improved significantly with the change to labetalol. Her urine output is more than adequate she does appear to be covering from the preeclampsia we will stop the magnesium and we'll allow her to ambulate and a close attention to blood pressures and signs symptoms or indications of worsening preeclampsia July 20, 2018 Patient is without complaint. She is ambulating, voiding, tolerating oral intake well and has good pain control. Patient denies chest pain, denies shortness of breath, denies nausea vomiting, and denies headache. 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 She is requesting discharge home Vital Signs Date Time Temp Pulse Resp B/P (MAP) Pulse Ox O2 Delivery O2 Flow Rate FiO2 07/20/18 06:23 97.0 90 18 141/99 (113) 96 Room Air 07/20/18 00:00 99.4 92 18 145/95 (112) 95 Room Air 07/19/18 20:30 98.0 82 18 140/85 (103) 98 Room Air 07/19/18 16:00 98.2 84 18 134/83 (100) 96 Room Air 07/19/18 12:00 98.2 78 18 154/93 (113) 97 Room Air I & O 07/20/18 07:00 Intake Total 2290 ml Output Total 4410 ml Balance -2120 ml Blood pressures are stable on the Procardia The abdomen is benign. The surgical incision is clean dry and intact. Extremities show no clubbing cyanosis. There is no Homans sign. Assessment and plan postoperative day number 2 status post primary delivery due to severe preeclampsia with help syndrome. 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 Her blood pressures are stable and acceptable on Procardia XL 30 mg a day. Patient will be discharged home with follow-up in clinic Final Diagnosis Primary delivery at 34 weeks gestation MARIN RICHEY MD Jul 20, 2018 08:42
[2018-07-20] MEDS: predniSONE 20 MG TAB PO SCH (08:44)
[2018-07-20] MEDS: NIFEdipine ER 30 MG (PROCARDIA XL) TAB PO SCH (08:44)
[2018-07-20] MEDS: DOCUSATE SODIUM 100 MG (COLACE) CAP PO SCH (08:44)
[2018-07-20] MEDS ORDERED: IBUP-1780 PO ×2 (08:45)
[2018-07-20] MEDS ORDERED: DOCU100C37 PO ×2 (08:45)
[2018-07-20] MEDS ORDERED: OXYC1TAB12 PO ×2 (08:45)
[2018-07-20] MEDS ORDERED: Nifedipine PO ×2 (08:45)
--- NOTE | 2018-07-20 08:47 | Discharge Instructions ---
Discharge Instructions Discharge Medications New, Converted or Re-Newed RX: RX on Chart Patient Instructions Patient Instructions: As directed Return to The Hospital For: DIRECTED Activity & Diet Discharge Diet: No Restrictions Activity as Tolerated: No Orders-Post D/C & Referrals Follow Up Appt: RTC on Saturday, July 26, 2018 at 930 a.m. for incision check. Call to make follow up appt. for patient in 4 weeks. Return to clinic promptly for any signs symptoms or indications of recurrent preeclampsia or Schrader's palsy Wound Care: Remove hiram, apply benzoin and steri strips. Activity Per routine post instructions. Please call in RX to patient pharmacy. Diet as tolerated Patient may shower or tub bathe as desired. Continue home meds except labetalol which is to be discontinued MARIN RICHEY MD Jul 20, 2018 08:47
--- NOTE | 2018-07-20 10:30 | NUR ---
AMBULATING IN THE GOULD. MOVING WELL.
--- NOTE | 2018-07-20 10:47 | NUR ---
PERCOCET 1 TAB P.O. FOR C/O ABD PAIN.
--- NOTE | 2018-07-20 11:40 | NUR ---
RAFAL D/C'ED AND STERI STRIPS APPLIED. EDGES WELL-APPROXIMATED. NO S/SX OF INFLAMMATION. TINCTURE OF BENZOIN SPRAY TO SKIN PRIOR TO PLACING STERI STRIPS.
--- NOTE | 2018-07-20 12:20 | NUR ---
DISCHARGE INSTRUCTIONS REVIEWED WITH COPY OT PT. RX GIVEN. STATES UNDERSTANDING OF ALL INSTRUCTIONS AND NEED TO F/U SCHEDULED AND NEEDED.
[2018-07-20 12:45] VITALS: BP 141/88
--- NOTE | 2018-07-20 12:45 | NUR ---
DISMISSED FROM [facility] VIA W/C TO FAMILY CAR IN STABLE CONDITION ACC BY FAY FOSS.
== END 2018-07-20 12:45 | disposition home or self-care (01) | DRG 787 ==
LOC: EDUNIT# 17:39 → ER 17:40 → OBSVTOIN 18:10 → UNDOADMOB 18:10 → LDRP 18:10
PROVIDERS: ADMIT Obstetrics & Gynecology; ATTEND Obstetrics & Gynecology
PROC: 10D00Z1 Extraction of Products of Conception, Low, Open Approach (ICD-10-PCS; principal; 2018-07-18 21:43)
DX: O14.24 HELLP syndrome, complicating childbirth (principal); O10.02 Pre-existing essential hypertension complicating childbirth; O99.354 Diseases of the nervous system complicating childbirth; G51.0 Bell's palsy; Z3A.34 34 weeks gestation of pregnancy; Z37.0 Single live birth
CPT/HCPCS: 36415; 80053; 80306; 81000; 82570; 83615; 83735; 84156; 84443; 84550; 85007; 85025; 85027; 85610; 85730; 93005; 93041; 94664

== ENCOUNTER → 2018-07-18 | Outpatient (CLI) | payer OTHER ==
[~2018-07-18] MED LIST changes: +ASPI-586 PO; +DOCU100C37 PO; +IBUP-1780 PO; +LABE200T7 PO; +NITR-65 PO; +Nifedipine PO; +OXYC1TAB12 PO
== END ==
LOC: LABNPT 09:07
PROVIDERS: ATTEND Obstetrics & Gynecology
DX: O28.8 Other abnormal findings on antenatal screening of mother (principal)
CPT/HCPCS: 82570; 84156

== ENCOUNTER → 2018-07-24 | Outpatient (CLI) | payer OTHER ==
[~2018-07-24] MED LIST changes: +ASPI-586 PO; +DOCU100C37 PO; +IBUP-1780 PO; +Nifedipine PO; +OXYC1TAB12 PO
== END ==
LOC: LABNPT 10:36
PROVIDERS: ATTEND Obstetrics & Gynecology
DX: O10.42 Pre-existing secondary hypertension complicating childbirth (principal)
CPT/HCPCS: 82570; 84156

== ENCOUNTER → 2019-01-26 | Outpatient (CLI) | payer OTHER ==
[~2019-01-26] MED LIST changes: +HOLD METFORMIN - RECEIVED CONTRAST 20 ML VIAL IV SCH; +IOHEXOL 350 MG/ML 100 ML (OMNIPAQUE 350) VIAL IV ONE; +NS 100 ML (IVPB) BAG IV ONE
--- NOTE | 2019-01-26 09:19 | Diagnostic Imaging Report ---
PROCEDURE: CT abdomen and pelvis with contrast. TECHNIQUE: Multiple contiguous axial images were obtained through the abdomen and pelvis after administration of intravenous contrast. Auto Exposure Controls were utilized during the CT exam to meet ALARA standards for radiation dose reduction. INDICATION: Abdominal pain and nausea. FINDINGS: There is low-density in the liver likely due to fatty infiltration. No focal hepatic, gallbladder, pancreatic or splenic abnormality is identified. No adrenal gland or renal abnormality is seen. There is excretion of contrast in both kidneys. There is a small amount of pelvic free fluid which may be physiologic. Partially opacified urinary bladder is unremarkable. There is prominence of parametrial vasculature. There is moderate amount of stool in the ascending colon with mild fecalization of distal ileal contents. There is no evidence of appendiceal inflammation. IMPRESSION: 1. Increased stool burden in the right colon may be due to constipation. 2. Parametrial vasculature is prominent and may be the result of venous congestion. 3. Otherwise, no acute abnormality is identified. Dictated by: Dictated on workstation # [id number]
== END ==
LOC: RAD 08:34
PROVIDERS: ATTEND Nurse Practitioner Family
DX: R10.31 Right lower quadrant pain (principal); R11.0 Nausea
CPT/HCPCS: 74177

== ENCOUNTER → 2020-03-11 | Outpatient (CLI) | payer OTHER ==
[~2020-03-11] MED LIST changes: -HOLD METFORMIN - RECEIVED CONTRAST 20 ML VIAL IV SCH; -IOHEXOL 350 MG/ML 100 ML (OMNIPAQUE 350) VIAL IV ONE; -NS 100 ML (IVPB) BAG IV ONE
== END ==
LOC: LABNPT 05:51
PROVIDERS: ATTEND Family Medicine
DX: R05 Cough (principal); R09.81 Nasal congestion; Z20.828 Contact with and (suspected) exposure to other viral communicable diseases
CPT/HCPCS: 87804; U0002; 87635